=== PATIENT | female | born 1970 | race Caucasian/White ===

== ENCOUNTER 2020-03-18 15:22 | Outpatient (REF) | payer OTHER, SELFPAY ==
[2020-03-18 17:32] LABS: Free T4 (Free Thyroxine) 0.82 ng/dL (0.71-1.85); Thyroid Stimulating Hormone 3.72 uIU/mL (0.32-4.0)
[2020-03-20 13:41] LABS: Thyroid Peroxidase Antibodies 731 IU/mL (<9)
== END 2020-03-18 15:23 | disposition home or self-care (01) ==
LOC: HO.HMGCLDS 15:22
PROVIDERS: PCP Internal Medicine; Visit Provider Internal Medicine
DX: E06.3 Autoimmune thyroiditis (principal); F41.8 Other specified anxiety disorders; N95.1 Menopausal and female climacteric states; E03.9 Hypothyroidism, unspecified
CPT/HCPCS: 36415; 82306; 84439; 84443; 86376

== ENCOUNTER 2020-03-23 12:11 | Outpatient (REF) | payer OTHER, SELFPAY ==
--- NOTE | 2020-03-23 12:15 | MM_ITS ---
EXAMINATION: MM SCREENING DIGITAL MAMMOGRAPHY, BILATERAL CLINICAL INFORMATION: Screening. Asymptomatic. Family history breast cancer, mother age 52. The lifetime risk of breast cancer based on the Tyrer-Cuzick Model is 22%. COMPARISON: Mammography: 03/18/2019, 02/05/2018 TECHNIQUE: Digital mammography is performed in craniocaudal and mediolateral oblique views along with computer-aided detection (CAD). Additional bilateral CC views are provided. FINDINGS: There are scattered areas of fibroglandular density (ACR BI-RADS breast composition Category b). There are no significant masses, abnormal calcifications, or other abnormalities. Parenchymal pattern is similar to prior studies. The axilla and skin contours are unremarkable. No significant changes. MM/MM screening mammo BI IMPRESSION: No mammographic evidence of malignancy. ASSESSMENT: BI-RADS 1: Negative RECOMMENDATION: 1. Routine annual mammography screening. 2. The lifetime risk of breast cancer based on the Tyrer-Cuzick Model is 22%. Additional annual adjunct screening with breast MRI may be of benefit in women with a risk score of 20% or greater. This patient's information was entered into a reminder system with a target due date for their next mammogram.
== END 2020-03-23 12:12 | disposition home or self-care (01) ==
LOC: HO.MAMMO 12:11
PROVIDERS: PCP Internal Medicine; Visit Provider Internal Medicine
DX: Z12.39 Encounter for other screening for malignant neoplasm of breast (principal)
CPT/HCPCS: 77067

== ENCOUNTER 2020-07-22 16:24 | Outpatient (REF) | payer OTHER, SELFPAY ==
[2020-07-24 23:31] LABS: HPV mRNA E6/E7 rflx Not Detected (Not Detected)
== END 2020-07-22 16:25 | disposition home or self-care (01) ==
LOC: HO.LNP 16:24
PROVIDERS: Visit Provider Internal Medicine
DX: Z12.4 Encounter for screening for malignant neoplasm of cervix (principal); Z11.51 Encounter for screening for human papillomavirus (HPV)
CPT/HCPCS: 87624; 88142

== ENCOUNTER 2021-04-06 09:09 | Outpatient (REF) | payer OTHER, SELFPAY ==
--- NOTE | ~2021-04-06 | MM_ITS ---
EXAMINATION: MM SCREENING DIGITAL BREAST TOMOSYNTHESIS, BILATERAL CLINICAL INFORMATION: Screening. Asymptomatic. Family history breast cancer, mother. The lifetime risk of breast cancer based on the Tyrer-Cuzick Model is 22%. COMPARISON: Mammography: 03/23/2020, 03/18/2019, 02/05/2018, 01/09/2017 TECHNIQUE: Digital breast tomosynthesis is performed in both the craniocaudal and mediolateral oblique views along with computer-aided detection (CAD). Synthesized 2D images are generated from the tomosynthesis. Additional right MLO view is provided. FINDINGS: There are scattered areas of fibroglandular density (ACR BI-RADS breast composition Category b). There are no significant masses, abnormal calcifications, or other abnormalities. Parenchymal pattern is similar to prior exams. MM/MM tomosynthesis screening BI IMPRESSION: No mammographic evidence of malignancy. ASSESSMENT: BI-RADS 1: Negative RECOMMENDATION: 1. Routine annual mammography screening. 2. The lifetime risk of breast cancer based on the Tyrer-Cuzick Model is 22%. Additional annual adjunct screening with breast MRI may be of benefit in women with a risk score of 20% or greater. This patient's information was entered into a reminder system with a target due date for their next mammogram.
== END 2021-04-06 09:10 | disposition home or self-care (01) ==
LOC: HO.MAMMO 09:09
PROVIDERS: PCP Internal Medicine; Visit Provider Internal Medicine
DX: Z12.31 Encounter for screening mammogram for malignant neoplasm of breast (principal)
CPT/HCPCS: 77063; 77067

== ENCOUNTER 2022-05-06 13:52 | Outpatient (REF) | payer OTHER, SELFPAY ==
--- NOTE | ~2022-05-06 | MM_ITS ---
EXAMINATION: MM SCREENING DIGITAL BREAST TOMOSYNTHESIS, BILATERAL CLINICAL INFORMATION: Screening. Asymptomatic. Family history breast cancer, mother. The lifetime risk of breast cancer based on the Tyrer-Cuzick Model is 21%. COMPARISON: Mammography: 04/06/2021, 03/23/2020, 03/18/2019 TECHNIQUE: Digital breast tomosynthesis is performed in both the craniocaudal and mediolateral oblique views along with computer-aided detection (CAD). Synthesized 2D images are generated from the tomosynthesis. FINDINGS: There are scattered areas of fibroglandular density (ACR BI-RADS breast composition Category b). There are no significant masses, abnormal calcifications, or other abnormalities. Parenchymal pattern is similar to prior studies. There is no developing density or architectural abnormality. The axilla and skin contours are unremarkable. No significant changes. MM/MM tomosynthesis screening BI IMPRESSION: No mammographic evidence of malignancy. ASSESSMENT: BI-RADS 1: Negative RECOMMENDATION: Routine annual mammography screening. This patient's information was entered into a reminder system with a target due date for their next mammogram.
== END 2022-05-06 13:53 | disposition home or self-care (01) ==
LOC: HO.MAMMO 13:52
PROVIDERS: PCP Internal Medicine; Visit Provider Internal Medicine
DX: Z12.31 Encounter for screening mammogram for malignant neoplasm of breast (principal)
CPT/HCPCS: 77063; 77067

== ENCOUNTER 2023-01-24 10:16 | Outpatient (REF) | payer OTHER, SELFPAY ==
[2023-01-24 13:20] LABS: MANUAL DIFF FLAG NO
[2023-01-24 13:41] LABS: Basophils Absolute Auto 0.1 X10*3/uL (0.0-0.2); Eosinophils Absolute Auto 0.2 X10*3/uL (0.0-0.4); Eosinophils Percent Auto 3.4 % (0-4); Hematocrit 43.6 % (37.0-47.0); Hemoglobin 14.7 g/dl (12.0-16.0); Imm Gran Abs Auto 0.02 X10*3/uL (0.00-0.03); Imm Gran Pct Auto 0.3 % (0.0-0.4); Lymphocytes Absolute Auto 2.3 X10*3/uL (1.2-4.9); Lymphocytes Percent Auto 33.5 % (20-40); Mean Corpuscular HGB Conc 33.7 g/dl (31.0-35.0); Mean Corpuscular Hemoglobin 32.5 pg (27.0-33.0); Mean Corpuscular Volume 96.2 fL (80.0-98.0); Mean Platelet Volume 10.3 fL (9.4-12.3); Monocytes Absolute Auto 0.6 X10*3/uL (0.1-1.2); Monocytes Percent Auto 8.7 % (2-11); Neutrophils Absolute Auto 3.6 x10*3/uL (2.0-8.3); Neutrophils Percent Auto 53.1 % (45-73); Platelet Count 378 X10*3/uL (160-400); Red Blood Count 4.53 X10*6/uL (4.20-5.50); Red Cell Distribution Width 12.2 % (11.0-16.0); White Blood Count 6.8 X10*3/uL (4.8-10.8)
[2023-01-24 13:50] LABS: Alanine Aminotransferase 24 U/L (0-31); Anion Gap 12 (12-20); Aspartate Amino Transferase 18 U/L (5-31); Blood Urea Nitrogen 16 mg/dL (9-16); Calcium 10.1 mg/dL (8.4-10.2); Carbon Dioxide 33 mmol/L (22-29); Chloride 94 mmol/L (96-108); Cholesterol 206 mg/dL (<200); Estimated Glomerular Filt Rate > 60; Glucose Fasting 109 mg/dL (60-99); HDL Cholesterol 64 mg/dL (>40); LDL Cholesterol Calculated 126 mg/dL (<100); Potassium 3.4 mmol/L (3.3-5.1); Sodium 136 mmol/L (135-145); Triglycerides 84 mg/dL (<150)
[2023-01-24 14:13] LABS: Free T4 (Free Thyroxine) 0.82 ng/dL (0.71-1.85); Thyroid Stimulating Hormone 6.39 uIU/mL (0.32-4.0); Vitamin D 25-OH Total 50.8 ng/mL (>30)
== END 2023-01-24 10:17 | disposition home or self-care (01) ==
LOC: HO.HMGCLDS 10:16
PROVIDERS: PCP Internal Medicine; Visit Provider Internal Medicine
DX: E78.5 Hyperlipidemia, unspecified (principal); E06.3 Autoimmune thyroiditis; I10 Essential (primary) hypertension; B00.1 Herpesviral vesicular dermatitis; F41.8 Other specified anxiety disorders; J30.2 Other seasonal allergic rhinitis; N95.1 Menopausal and female climacteric states; E55.9 Vitamin D deficiency, unspecified
CPT/HCPCS: 36415; 80048; 80061; 82306; 84439; 84443; 84450; 84460; 85025

== ENCOUNTER 2023-01-26 11:08 | Outpatient (AMB) | payer OTHER, SELFPAY ==
[2023-01-26 11:10] VITALS: BP 112/80; PULSE 72; O2SAT 98; BMI 35.2
--- NOTE | 2023-01-26 11:10 | MHC.PC.OV ---
Vital Signs 01/26/23 11:10 Height 5 ft 6 in Weight 218 lb BMI 35.2 BP 112/80 Blood Pressure Location Lt brachial Position Sitting Pulse 72 Pulse Source Pulse Oximeter Pulse Oximetry (%) 98 Oxygen Delivery Method Room Air Intake Visit Reasons: Annual PE/Pap Intake Note: patient is here today for annual PE/Pap Allergies No Known Drug Allergies Allergy (Verified 01/26/23 11:41) unknown Environmental Allergy (Unknown, Uncoded 01/26/23 11:41) Unknown Medication List - Last Reconciled 01/26/23 by Sirena Ford MD bupropion HCl 300 mg PO QAM cetirizine 10 mg PO DAILY cholecalciferol (vitamin D3) 125 mcg PO DAILY hydrochlorothiazide 25 mg PO QAM levothyroxine 50 mcg PO DAILY valacyclovir 500 mg PO DAILY Tobacco use date assessed: 01/26/23 Dental Screening Dental Screen Date: 01/26/23 Did you have a dental visit in the last 12 months?: Yes Did you have a dental problem in the last 6 months where you did not have access to dental care?: Yes Was dental information given to patient?: Patient has dentist HPI Annual PE/Pap HPI Details 52-year-old lady With Venancio's thyroiditis with subsequent hypothyroidism, dyslipidemia, hypertension, recurrent cold sores, depression with anxiety,has Vasomotor symptoms secondary to menopause, here today for her physical exam. She has been compliant with healthy eating habits, but admits to not getting any regular exercise this past summer due to the heat. She has been taking her medicines as directed except for her thyroid medicine which he takes at night. Has been feeling more tired than usual and has been getting constipation. She is up-to-date with her screening mammogram done earlier this year with benign findings, overdue for her cervical cancer screening, will be doing a Pap this visit. And she is overdue for colon cancer screening. Patient advised to get her vaccines, but does not want to get a flu shot or the COVID booster or the shingles vaccine [facility] Medical History (Updated 01/26/23 @ 12:11 by Sirena Ford MD) Obesity (BMI 30-39.9) Vaccine refused by patient Acquired hypothyroidism Vitamin D deficiency Numbness and tingling of right lower extremity Spider veins of both lower extremities Breast cancer screening Smoker unmotivated to quit Dyslipidemia Venancio's thyroiditis Essential hypertension IBS (irritable bowel syndrome) Recurrent cold sores Depression with anxiety Seasonal allergies Menopause syndrome Surgical History Trigger thumb, right thumb History of flexible sigmoidoscopy Family History Father Schizophrenia Diabetes mellitus HTN (hypertension) Depression Bladder cancer Liver cancer Mental health disorder Mother Diabetes mellitus HTN (hypertension) Breast cancer Mental health disorder Maternal Grandmother Heart problem Maternal Grandfather Pneumonia Paternal Grandmother No problems noted. Paternal Grandfather No problems noted. Sister Substance use disorder Mental health disorder Sister Mental health disorder Social History Housing: Condominium Alcohol intake: current Patient Tobacco Use Status: Current everyday Tobacco user e-Cigarette/Vaping Use: Never Used service: No Current occupational status: employed Cognitive needs: No Hearing needs: No Vision needs: No Female Reproductive History Menstrual Menopause type: natural Date of last pap smear: 07/23/20 Date of Mammogram: 05/06/22 Questionnaire Thrive Questionnaire Date Thrive assessed: 08/10/22 AUDIT C Alcohol Use Questionnaire (AUDIT-C) 1. How often do you have a drink containing alcohol?: Never Total Score: 0 GABBIE-7 AMB Questionnaire GABBIE-7 Date GABBIE - 7 assessed: 08/10/22 Source: Developed by Drs. Trae Boggs, Emi Soriano, Manuel Salgado and colleagues, with an educational raquel from [employer]. Review of Systems Const Denies body aches, Denies fever(s), Denies headache(s) and Denies weakness Eyes Denies change in vision ENT Denies dizziness, Denies headache(s), Denies nasal congestion, Denies nasal discharge and Denies sore throat Card Denies chest pain, Denies lightheadedness, Denies palpitations and Denies dyspnea Resp Denies chest congestion, Denies cough, Denies dyspnea and Denies wheezing GI Denies abdominal pain, Denies change in bowel habits and Denies heartburn Denies hematuria, Reports change in libido, Denies urinary frequency, Denies difficulty voiding, Denies genital lesions, Reports hot flashes (Recurrent), Denies dysuria, Denies urinary urgency, Denies vaginal discharge and Reports vaginal dryness Musc Denies back pain, Denies myalgias, Denies arthralgias and Denies joint swelling Skin/Breast Denies breast swelling, Denies breast pain, Denies breast mass and Denies rash Neuro Denies dizziness, Denies headache(s) and Denies weakness Psych Reports change in libido Endo Reports change in libido, Denies polydipsia, Denies polyuria and Denies palpitations Charan/Lymph Denies easy bruising Aller/Immun Denies seasonal rhinorrhea and Denies wheezing Physical exam (Primary Care) Vital Signs: Last Vital Signs Pulse 72 01/26/23 11:10 BP 112/80 01/26/23 11:10 Pulse Ox 98 01/26/23 11:10 Oxygen Delivery Method Room Air 01/26/23 11:10 BMI result Body Mass Index 35.2 BMI Assessment/Plan discussion: High BMI High, discussed plan: lifestyle, weight reduction, dietary and physical activity Tobacco/Smoking Status: Tobacco use Status Tobacco use date assessed 01/26/23 01/26/23 11:12 Patient Tobacco Use Status Current everyday Tobacco 01/26/23 11:12 e-Cigarette/Vaping Use Never Used 01/26/23 11:12 Are you ready to quit: No Thrive Assessment: Date of Thrive Assessment Date Thrive assessed 08/10/22 01/26/23 11:12 Const General: comfortable, no acute distress and alert Nutritional Appearance: obese Orientation/consciousness: patient oriented x3 Limitations: no limitations HENMT Other: Alert oriented x3, no acute cardiorespiratory distress ambulatory with normal gait Eyes General: appearance normal, both eyes and all related structures Neck Neck: Yes full ROM, Yes no lymphadenopathy and Yes supple Chest Chest palpation & inspection: normal inspection of the chest Breast/axilla palpation: normal palpation of the breasts Resp Effort & Inspection: normal respiratory effort and able to speak in complete sentences Auscultation: clear to auscultation bilaterally Cardio Rate: regular rate Rhythm: regular rhythm Heart sounds: S1 normal heart sound present and S2 normal heart sound present GI Palpation (GI): Soft to palpation, nontender, no guarding and no masses Auscultation: normal bowel sounds General: Yes no CVA tenderness External Female Exam: normal external appearance and normal appearance of the urethra Speculum Exam - Vagina: normal appearance of the vagina, normal palpation and abnormal vaginal discharge (Scant vaginal discharge) Speculum Exam - Cervix: normal appearance of the cervix, normal palpation, Cervical os open and nontender Bimanual exam- vagina & uterus: normal palpation, normal palpation and No Cervical tenderness present Bimanual Exam- Adnexa, other: normal adnexae, no masses, normal and No adnexal tenderness OB/external & speculum: Cervical os open Back/Spine/Pelvis Back: no CVA tenderness Skin General skin exam: no rashes or lesions noted Neuro General: patient oriented x3, gait normal, moves all extremities, Normal light touch and pain sensation, no focal motor deficits and CN's II-XI intact bilaterally Extrem Other: superficial varicosities seen in both lower extremities, no calf tenderness, no pedal edema Psych Appearance: grossly normal Mental Status: mental status grossly normal Speech and movement: Normal speech and movement present Affect: normal affect Attitude: cooperative Thought process: Normal thought process present Results Reviewed Results Reviewed: RUN: 01/26/23 1215 PAGE 1 [facility] [address] [place] [id number] [employer]: Kyrie Singh M.D. Specimen Inquiry Name: Gladys Cota Age/Sex: 52/F : 1970 Unit#: [id number] Attend Dr: Sirena Ford MD Re01/24/23 Status: DEP REF Location: [facility] Disch: SPEC : [id number] LILI: 01/24/23 STATUS: COMP REQ : [id number] RECD: 01/24/[address]: Sirena Ford MD COMP: 01/24/23 ENTERED: 01/24/[address]: ORDERED: CBC Auto Diff Test Result Flag Reference Site WBC 6.8 4.8-10.8 X10*3/uL RBC 4.53 4.20-5.50 X10*6/uL HGB 14.7 12.0-16.0 g/dl HCT 43.6 37.0-47.0 % MCV 96.2 80.0-98.0 fL MCH 32.5 27.0-33.0 pg MCHC 33.7 31.0-35.0 g/dl RDW 12.2 11.0-16.0 % PLT 378 160-400 X10*3/uL ENTERED: 01/24/23-1020 HR ANGUIANO: ORDERED: Met Prof Fast, AST, ALT, Lipid Panel, Vitamin D 25-OH, Free T4, TSH Test Result Flag Reference Site Sodium 136 135-145 mmol/L Potassium 3.4 3.3-5.1 mmol/L CL 94 L 96-108 mmol/L CO2 33 H 22-29 mmol/L Gap 12 12-20 BUN 16 9-16 mg/dL Creat 0.79 0.5-1.4 mg/dL EGFR > 60 NOTE: For -Citizen Of [place] individuals, multiply the result by 1.210. Chronic Kidney Disease: Estimated GFR < 60 mL/min/1.73m2 Severe Kidney Disease: Estimated GFR < 15 mL/min/1.73m2 FBS 109 H 60-99 mg/dL A fasting glucose from 100-125 mg/dl is considered impaired (pre-diabetes). CA 10.1 8.4-10.2 mg/dL AST (GOT) 18 5-31 U/L ALT (GPT) 24 0-31 U/L Triglyceride 84 <150 mg/dL Desirable Triglyceride: less than 150 mg/dL Borderline High Triglyceride 150-199 mg/dL High Triglyceride: 200-499 mg/dL Very High Triglyceride: greater than or equal to 5OO mg/dL Cholesterol 206 H <200 mg/dL Desirable Cholesterol: less than 200 mg/dL Borderline High Cholesterol: 200-239 mg/dL High Cholesterol: greater than 239 mg/dL LDL Calculated 126 H <100 mg/dL Desirable LDL: less than 100 mg/dL Near Optimal/Above Optimal LDL: 110-129 mg/dL Borderline High LDL: 130-159 mg/dL High LDL: 160-189 mg/dL Very High LDL: greater than or equal to 190 mg/dL HDL 64 >40 mg/dL Desirable HDL: greater than 40 mg/dL Note: This HDL assay may give artificially low results in patients with liver disease. Vit D 25-OH Tot 50.8 >30 ng/mL Health Based Reference Values* < 20 ng/mL Deficient 20-30 ng/mL Insufficient > 30 ng/mL Sufficient *Holick MF. N Engl J Med. 2007;[id number]:266-280 Care must be taken in interpreting Vitamin D results from different laboratories and methodologies. Published data demonstrated that results from patients undergoing hemodialysis may show a negative bias when tested with various automated 25-OH vitamin D assays when compared to LC-MS/MS. When testing samples from patients whose predominant form of Vitamin D is Vitamin D2, such as patients receiving Vitamin D2 supplementation, results that are subtherapeutic should be confirmed with another method such as LC-MS/MS. Free T4 0.82 0.71-1.85 ng/dL TSH 3rd Gen. 6.39 H 0.32-4.0 uIU/mL Note: A sustained TSH level above 2.5 uIU/mL may warrant further investigation. TSH 3rd Generation ([facility]) Assessment and Plan Assessment & Plan (1) Annual visit for general adult medical examination with abnormal findings: Code(s): Z00.01 - Encounter for general adult medical examination with abnormal findings Plan: Discuss recent lab results with patient Recommended dental visit every 6 months and regular eye exams, at least every 2 years. Take adequate calcium in diet and vitamin-D 3 at 2000 IU per cap once a day, in addition to weight-bearing exercises to help maintain good muscle tone and weight control. Instructed to do self-breast exam, and continue to get yearly mammogram, currently up-to-date patient declining all vaccines. Referred to [facility] for initial screening colonoscopy (2) Acquired hypothyroidism: Code(s): E03.9 - Hypothyroidism, unspecified Plan: Discuss recent thyroid results with patient which showed elevated TSH and mildly suppressed free T4. Patient complains of being tired all the time and constipated. Will increase levothyroxine dose to 75 mcg daily, instructed to take it in the morning an hour before breakfast only with glass of water. Will repeat another TSH, free T4 and thyroid peroxidase antibody March 2023 (3) Venancio's thyroiditis: Code(s): E06.3 - Autoimmune thyroiditis (4) Colon cancer screening: Code(s): Z12.11 - Encounter for screening for malignant neoplasm of colon Plan: Referred to GI clinic in [facility] for her initial colonoscopy screening (5) Cervical cancer screening: Code(s): Z12.4 - Encounter for screening for malignant neoplasm of cervix Plan: Pap done (6) Vaccine refused by patient: Code(s): Z28.20 - Immunization not carried out because of patient decision for unspecified reason (7) Obesity (BMI 30-39.9): Code(s): E66.9 - Obesity, unspecified Plan: Discussed need to increase activity. Recommended focusing on improving your health instead of dieting. : Eat Mediterranean diet, limit foods high in fat, sugar, and calories, eat slowly, pay attention to portion sizes, plan your meals ahead of time, start regular physical activity 150 minutes of moderate intensity exercise or 90 minutes/week of vigorous exercise and increase water intake. (8) Smoker unmotivated to quit: Code(s): F17.200 - Nicotine dependence, unspecified, uncomplicated Plan: Patient strongly advised to stop smoking, as smoking damages blood vessels, degenerative of joints and spine, damage to lungs and heart., predisposes to developing certain cancers like lung, breast, bladder, colon. Recommended to try decreasing cigarette use by 1-2 cigarettes a day. Advised to monitor what triggers are for smoking so that this can be discussed on the next office visit. We can discuss different options to quit smoking when ready. (9) Depression with anxiety: Code(s): F41.8 - Other specified anxiety disorders Plan: Stable controlled on bupropion 300 mg 1 tablet in a.m. (10) Recurrent cold sores: Code(s): B00.1 - Herpesviral vesicular dermatitis Plan: Takes Valtrex mg daily for prevention (11) Essential hypertension: Code(s): I10 - Essential (primary) hypertension Plan: Blood pressure at goal of less than 130/80. Continue with hydrochlorothiazide. Reinforced importance of following a low sodium diet, getting regular exercise, and lowering stress levels. Orders: Orders Pap Smear Today Z00.01 - Encounter for general adult medical examination with abnormal findings, Z12.4 - Encounter for screening for malignant neoplasm of cervix Pap Smear Today Z00.01 - Encounter for general adult medical examination with abnormal findings, Z12.4 - Encounter for screening for malignant neoplasm of cervix Thyroid Stimulating Hormone 03/24/23 E03.9 - Hypothyroidism, unspecified, E06.3 - Autoimmune thyroiditis Free T4 (Free Thyroxine) 03/24/23 E03.9 - Hypothyroidism, unspecified, E06.3 - Autoimmune thyroiditis Thyroid Peroxidase Antibodies 03/24/23 E03.9 - Hypothyroidism, unspecified, E06.3 - Autoimmune thyroiditis Referrals Gastroenterology Referral Z00.01 - Encounter for general adult medical examination with abnormal findings, Z12.11 - Encounter for screening for malignant neoplasm of colon Medications: Changed From levothyroxine 50 mcg PO DAILY 90 tabs 1RF To levothyroxine 75 mcg PO DAILY 90 tabs 1RF Review Flu Vaccine not done: patient reason (Patient declined) Coding Level of Care Code Est Pt Prev Care 40-64y(56168) Diagnoses Annual visit for general adult medical examination with abnormal findings Z00.01 Acquired hypothyroidism E03.9 Venancio's thyroiditis E06.3 Colon cancer screening Z12.11 Cervical cancer screening Z12.4 Vaccine refused by patient Z28.20 Obesity (BMI 30-39.9) E66.9 Smoker unmotivated to quit F17.200 Depression with anxiety F41.8 Recurrent cold sores B00.1 Essential hypertension I10
== END 2023-01-26 15:50 | disposition home or self-care (01) ==
PROVIDERS: Visit Provider Internal Medicine
DX: Z00.00 Encounter for general adult medical examination without abnormal findings (principal); E03.9 Hypothyroidism, unspecified; E66.9 Obesity, unspecified; Z68.35 Body mass index [BMI] 35.0-35.9, adult; E06.3 Autoimmune thyroiditis; Z28.20 Immunization not carried out because of patient decision for unspecified reason; F17.210 Nicotine dependence, cigarettes, uncomplicated; F41.8 Other specified anxiety disorders; B00.1 Herpesviral vesicular dermatitis; I10 Essential (primary) hypertension
CPT/HCPCS: 99396

== ENCOUNTER 2023-01-26 12:03 | Outpatient (REF) | payer OTHER, SELFPAY | END 2023-01-26 12:04 | disposition home or self-care (01) | LOC: HO.LAB 12:03 | PROVIDERS: Visit Provider Internal Medicine | DX: Z12.4 Encounter for screening for malignant neoplasm of cervix (principal); Z11.51 Encounter for screening for human papillomavirus (HPV) | CPT/HCPCS: 87624; 88142 ==

== ENCOUNTER 2023-03-22 11:40 | Outpatient (AMB) | payer OTHER, SELFPAY ==
[2023-03-22 11:54] VITALS: BP 150/101; PULSE 79; BMI 35.7
--- NOTE | 2023-03-22 11:54 | A.OFFVIS_ITS ---
Intake Vital Signs 03/22/23 11:54 Height 5 ft 6 in Weight 221 lb 5.506 oz BMI 35.7 BP 150/101 H Blood Pressure Location Lt brachial Position Sitting Pulse 79 Intake Visit Reasons: Colonoscopy Screening Intake Note: Patient presents to in office visit today for colonoscopy screening. CC: Patient c/o constipation, rectal bleeding, and diarrhea. Denies other GI symptoms. Allergies No Known Drug Allergies Allergy (Verified 04/28/23 11:55) unknown Environmental Allergy (Unknown, Uncoded 04/28/23 11:55) Unknown Medication List - Last Reconciled 03/22/23 by ALVIN Crenshaw bupropion HCl 300 mg PO QAM cetirizine 10 mg PO DAILY cholecalciferol (vitamin D3) 125 mcg PO DAILY hydrochlorothiazide 25 mg PO QAM levothyroxine 75 mcg PO DAILY magnesium oxide 500 mg PO BID methylcellulose (with sugar) ea PO sodium,potassium,mag sulfates 17.5-3.13-1.6 gram (Suprep Bowel Prep Kit) 480 mL orally; valacyclovir 500 mg PO DAILY HPI Colonoscopy Screening HPI Details 52-year-old female here for preprocedura l meeting to discuss a screening colonoscopy. She is referred by Sirena Ford of [facility]. PMX Obesity Smoker Hypertension Hypothyroid High cholesterol Numbness and tingling of the right lower extremity Spider veins of the lower extremities IBS Recurrent cold sores Seasonal allergies Depression with anxiety * SURGICAL HISTORY Trigger finger right thumb History of flex sig CTR bilateral * ALLERGIES: NKDA * [facility] LABS:. Laboratory Tests 01/24/23 10:20 WBC 6.8 Hgb 14.7 Hct 43.6 Plt Count 378 Estimated GFR > 60 AST 18 ALT 24 TSH 6.39 H Free T4 0.82 TODAYS VISI She wants a female endoscopist. This is her first colonoscopy. She has had lifelong CIC problems, recently near obpstipation x 2. Has used ex lax, dulcolax. Had stomach upset with metamucil and we discuss citrucel. She iss dong better at drinking water, does not eat well and admits this. She will have episodes of rectal bleeding - this was what her past flex sig was for and she was told she had IH. Also will try rx for magnesium. There are no prior problems with anesthesia or sedation. She denies any cardiac or respiratory problems.. No ID problems. There is no know FHX of crc or polyps. [facility] Medical History Obesity (BMI 30-39.9) Vaccine refused by patient Acquired hypothyroidism Vitamin D deficiency Numbness and tingling of right lower extremity Spider veins of both lower extremities Breast cancer screening Smoker unmotivated to quit Dyslipidemia Venancio's thyroiditis Essential hypertension IBS (irritable bowel syndrome) Recurrent cold sores Depression with anxiety Seasonal allergies Menopause syndrome Surgical History History of carpal tunnel surgery Trigger thumb, right thumb History of flexible sigmoidoscopy Family History Father Schizophrenia Diabetes mellitus HTN (hypertension) Depression Bladder cancer Liver cancer Mental health disorder Mother Diabetes mellitus HTN (hypertension) Breast cancer Mental health disorder Maternal Grandmother Heart problem Maternal Grandfather Pneumonia Paternal Grandmother No problems noted. Paternal Grandfather No problems noted. Sister Substance use disorder Mental health disorder Sister Mental health disorder Social History Housing: Condominium Alcohol intake: current Patient Tobacco Use Status: Current everyday Tobacco user e-Cigarette/Vaping Use: Never Used service: No Current occupational status: employed Cognitive needs: No Hearing needs: No Vision needs: No Review of Systems Const Denies fatigue, Denies fever(s), Denies night sweats, Denies poor appetite and Denies weight loss ENT Reports Normal hearing present, Denies dental pain, Denies dysphagia, Denies hearing loss, Denies mouth pain, Denies odynophagia, Denies throat swelling, Denies tongue swelling and Reports other (Dentition adequate) Card Reports no additional complaints Resp Reports no additional complaints GI Denies abdominal pain, Denies melena, Denies bloating, Denies hematochezia, Reports constipation, Denies GI cramping, Denies dysphagia, Denies excessive flatus, Denies early satiety, Denies heartburn, Denies diarrhea, Denies nausea, Denies odynophagia, Denies vomiting and Denies hematemesis Skin/Breast Denies pruritus, Denies lesions, Denies rash and Denies jaundice Neuro Reports Normal hearing present and Denies Abnormal speech present Endo Denies fatigue Aller/Immun Denies throat swelling and Denies tongue swelling Physical Exam Vital Signs: Last Vital Signs Pulse 79 03/22/23 11:54 BP 150/101 H 03/22/23 11:54 BMI result Body Mass Index 35.7 Const General: cooperative, no acute distress, well developed and well groomed Nutritional Appearance: well nourished and obese Orientation/consciousness: oriented to person, oriented to place and oriented to time Limitations: No language barrier HEENT Head: Yes normocephalic and Yes atraumatic Eyes General: appearance normal, both eyes and all related structures Pupils: Equal, round and reactive pupils present Neck Neck: Yes normal visual inspection and Yes no lymphadenopathy Thyroid: Thyroid normal Resp Effort & Inspection: normal respiratory effort and able to speak in complete sentences Auscultation: clear to auscultation bilaterally Cardio Rate: regular rate Rhythm: regular rhythm Heart sounds: Normal, physiologic split S2 sound present Peripheral pulses: radial pulses present and posterior tibial pulses present GI Inspection: No distended, Yes Abdominal panniculus present and Yes obesity Palpation (GI): Soft to palpation, nontender, no guarding, not rigid and No hepatosplenomegaly present Percussion: Yes normal to percussion Auscultation: normal bowel sounds Rectal Exam - Female: deferred Skin General skin exam: no rashes or lesions noted, turgor normal, skin not dry, no jaundice, No spider nevi and no striae Rashes: no rashes Nails: normal Neuro General: oriented to person, oriented to place and oriented to time Cranial nerves: Yes Equal, round and reactive pupils present and Yes Normal hear ing present Speech: No Abnormal speech present Extrem General: Yes normal to inspection, No clubbing, No cyanosis and No edema Psych Appearance: grossly normal and well kempt Mental Status: mental status grossly normal Speech and movement: Normal speech and movement present Affect: normal affect Attitude: cooperative Thought process: Normal thought process present and not confabulating Thought content: Normal thought content present Insight: Limited insight present (Psych) Judgement: Limited judgement present (Psych) Assessment & Plan Assessment & Plan (1) Pre-op examination: Code(s): Z01.818 - Encounter for other preprocedural examination Plan She wants a female endoscopist. This is her first colonoscopy. She has had lifelong CIC problems, recently near obpstipation x 2. Has used ex lax, dulcolax. Had stomach upset with metamucil and we discuss citrucel. She is dong better at drinking water, does not eat well and admits this. She will have episodes of rectal bleeding - this was what her past flex sig was for and she was told she had IH. Also will try rx for magnesium. There are no prior problems with anesthesia or sedation. She denies any cardiac or respiratory problems.. No ID problems. There is no know FHX of crc or polyps. Orders: Orders Colonoscopy - GI Use Only 03/22/23 Medications: New sodium,potassium,mag sulfates 17.5-3.13-1.6 gram (Suprep Bowel Prep Kit) 480 mL orally; 354 mL 0RF magnesium oxide 500 mg PO BID 60 tabs 6RF K59.04 - Chronic idiopathic constipation, Z01.818 - Encounter for other preprocedural examination Coding Level of Care Code New Pt Level 3 (05153) Diagnoses Pre-op examination Z01.818
== END 2023-03-22 12:37 | disposition home or self-care (01) ==
PROVIDERS: PCP Internal Medicine; Visit Provider Nurse Practitioner
DX: Z01.818 Encounter for other preprocedural examination (principal)
CPT/HCPCS: 99203

== ENCOUNTER → 2023-03-22 11:40 | Outpatient (BNVA) | payer OTHER, SELFPAY | PROVIDERS: PCP Internal Medicine; Visit Provider Nurse Practitioner | DX: Z01.818 Encounter for other preprocedural examination (principal) | CPT/HCPCS: 99202 ==

== ENCOUNTER 2023-04-28 10:14 | Outpatient (AMB) | payer OTHER, SELFPAY ==
--- NOTE | 2023-04-28 11:55 | MHC.OFFWIV ---
Intake Vital Signs 04/28/23 11:57 Height 5 ft 6 in Weight 210 lb BMI 33.9 BP 124/80 Blood Pressure Location Lt brachial Position Sitting Pulse 86 Pulse Source Pulse Oximeter Temp 97.4 F Temp Source Temporal Artery Scan Pulse Oximetry (%) 97 Oxygen Delivery Method Room Air Intake Visit Reasons: EP SOB, H/A, dry Cough/ OK [id number] Intake Note: Pt is here c/o SOB, dry cough for three days. Pt states she is having trouble breathing. Patient Tobacco Use Status: Current everyday Tobacco user Allergies No Known Drug Allergies Allergy (Verified 04/28/23 11:55) unknown Environmental Allergy (Unknown, Uncoded 04/28/23 11:55) Unknown Do you need a note to return to daycare/school/sports/work: Yes HPI HPI Comments History of Present Illness Details Patient presents for cough She is a smoker but denies inhaler use She said her sister has PNA and she was around her for 10 minutes She said cough since Monday No phlegm, fever or chills Minimal congestion and she denies ST or ear pain + lost voice and irritation Mucinex without relief Said chest feels tight and mucus is sitting in lungs PFS Medical History Obesity (BMI 30-39.9) Vaccine refused by patient Acquired hypothyroidism Vitamin D deficiency Numbness and tingling of right lower extremity Spider veins of both lower extremities Breast cancer screening Smoker unmotivated to quit Dyslipidemia Venancio's thyroiditis Essential hypertension IBS (irritable bowel syndrome) Recurrent cold sores Depression with anxiety Seasonal allergies Menopause syndrome Surgical History History of carpal tunnel surgery Trigger thumb, right thumb History of flexible sigmoidoscopy Family History Father Schizophrenia Diabetes mellitus HTN (hypertension) Depression Bladder cancer Liver cancer Mental health disorder Mother Diabetes mellitus HTN (hypertension) Breast cancer Mental health disorder Maternal Grandmother Heart problem Maternal Grandfather Pneumonia Paternal Grandmother No problems noted. Paternal Grandfather No problems noted. Sister Substance use disorder Mental health disorder Sister Mental health disorder Social History (Reviewed 03/22/23 @ 11:58 by [facility] Benavidez [facility]: Condominium Alcohol intake: current Patient Tobacco Use Status: Current everyday Tobacco user e-Cigarette/Vaping Use: Never Used service: No Current occupational status: employed Cognitive needs: No Hearing needs: No Vision needs: No Review of Systems Const Denies body aches, Denies chills, Denies fatigue, Denies fever(s) and Denies headache(s) Eyes Denies blurry vision ENT Denies otalgia, Denies headache(s), Reports nasal congestion, Denies nasal discharge, Denies sore throat and Denies throat swelling Card Denies chest pain Resp Reports chest congestion, Reports cough, Denies hemoptysis, Denies pain on inspiration, Denies pain with cough and Denies wheezing Musc Denies myalgias Neuro Denies headache(s) Endo Denies fatigue Aller/Immun Denies throat swelling and Denies wheezing Physical Exam Vital Signs: Last Vital Signs Temp 97.4 F 04/28/23 11:57 Pulse 6 L 04/28/23 11:57 BP 124/80 04/28/23 11:57 Pulse Ox 97 04/28/23 11:57 Oxygen Delivery Method Room Air 04/28/23 11:57 BMI result Body Mass Index 33.9 General: Non-toxic, NAD. Speaking full sentences. Skin: Warm dry throughout Eye: EOMI HENT: Airway patent. Uvula midline. No pharyngeal erythema or edema. No ON AIR TALENT. Hoarse voice but no submental or sublingual edema. No lymphadenopathy Bilateral canals clear. TM non-erythematous, non-bulging. No TM perforation or hemotympanum noted. Respiratory: CTA bilaterally. No wheezes, rales or rhonchi Cardiac: RRR. No murmur MSK: Full ROM extremities. Neurology: A/O. No aphasia or facial droop. Gait without abnormality Psych: Good mood and affect Assessment & Plan Assessment & Plan (1) Upper respiratory infection: Code(s): J06.9 - Acute upper respiratory infection, unspecified Qualifiers: URI type: unspecified viral URI Qualified Code(s): J06.9 - Acute upper respiratory infection, unspecified Plan Patient seen and evaluated. Lungs CTAAirway patent She refused COVID test Prednisone with food ((avoid nsaids and alcohol). Don't take too late. Has had in past and tolerated Tessalon F/U with PCP Patient gave verbal understanding and had no additional questions or concerns at time of discharge All questions answered Medications: New prednisone 40 mg (2 x 20 mg) PO DAILY 8 tabs 0RF benzonatate 100 mg PO BID-TID PRN 14 caps 0RF cough Coding Level of Care Code Est Pt Level 3 (82080) Diagnoses Viral upper respiratory tract infection J06.9 URI type: unspecified viral URI
[2023-04-28 11:57] VITALS: BP 124/80; PULSE 86; TEMP 36.3; O2SAT 97; BMI 33.9
== END 2023-04-28 13:13 | disposition home or self-care (01) ==
PROVIDERS: PCP Internal Medicine; Visit Provider Physician Assistant
DX: J06.9 Acute upper respiratory infection, unspecified (principal)
CPT/HCPCS: 99213

== ENCOUNTER 2023-05-10 09:03 | Outpatient (REF) | payer OTHER, SELFPAY ==
[2023-05-10 12:13] LABS: Thyroid Stimulating Hormone 4.27 uIU/mL (0.32-4.0)
[2023-05-11 11:29] LABS: Thyroid Peroxidase Antibodies 579 IU/mL (<9)
== END 2023-05-10 09:04 | disposition home or self-care (01) ==
LOC: HO.HMGCLDS 09:03
PROVIDERS: PCP Internal Medicine; Visit Provider Internal Medicine
DX: E03.9 Hypothyroidism, unspecified (principal); E06.3 Autoimmune thyroiditis
CPT/HCPCS: 36415; 84439; 84443; 86376

== ENCOUNTER 2023-05-12 14:24 | Outpatient (REF) | payer OTHER, SELFPAY | END 2023-05-12 14:25 | disposition home or self-care (01) | LOC: HO.MAMMO 14:24 | PROVIDERS: PCP Internal Medicine; Visit Provider Internal Medicine | DX: Z12.31 Encounter for screening mammogram for malignant neoplasm of breast (principal) | CPT/HCPCS: 77063; 77067 ==

== ENCOUNTER → 2023-05-12 14:30 | Outpatient (BNV) | payer OTHER, SELFPAY | PROVIDERS: PCP Internal Medicine; Visit Provider Radiology Diagnostic Radiology | DX: Z12.31 Encounter for screening mammogram for malignant neoplasm of breast (principal) | CPT/HCPCS: 77063; 77067 ==

== ENCOUNTER 2023-11-02 14:54 | Outpatient (AMB) | payer OTHER, SELFPAY ==
[2023-11-02 14:55] VITALS: BP 140/80; PULSE 75; TEMP 36.8; O2SAT 98
--- NOTE | 2023-11-02 14:55 | MHC.OFFWIV ---
Intake Vital Signs 11/02/23 14:55 Height 5 ft 6 in BMI Reason not done Patient refused/unable BP 140/80 H Blood Pressure Location Rt brachial Position Sitting Pulse 75 Pulse Source Pulse Oximeter Temp 98.2 F Temp Source Oral Pulse Oximetry (%) 98 Intake Visit Reasons: EP rash Intake Note: pt is here for rash on foot, suspects its athletes feet from pedicure at home Patient Tobacco Use Status: Current everyday Tobacco user Allergies No Known Drug Allergies Allergy (Verified 11/02/23 14:56) unknown Environmental Allergy (Unknown, Uncoded 04/28/23 11:55) Unknown Medication List - Last Reconciled 11/02/23 by Kavitha La NP bupropion HCl XL 300 mg PO QAM cetirizine 10 mg PO DAILY cholecalciferol (vitamin D3) 125 mcg PO DAILY hydrochlorothiazide 25 mg PO QAM levothyroxine 75 mcg PO DAILY magnesium oxide 500 mg PO BID valacyclovir 500 mg PO DAILY Do you need a note to return to daycare/school/sports/work: No HPI EP rash HPI Details This note is constructed using voice recognition software. While every effort has been made to ensure accuracy, store receiving clerk errors may have been included. 53-year-old female patient presents 3 day history rash to the top of the toes on bilateral feet. She notes that she had given herself on at-home pedicure, and had trimmed the cuticles, and then got acetone on that area. She then soaked her feet in a goat's milk soak. The area is itchy, not warm, no discharge. She was concerned that she may have athlete's feet, though she does not have any issue in between the toes or at the bottom of the foot. She also notes that she had a blister to her left great toe, which she popped and drained clear drainage. She was applying antibiotic ointment to the area, and then she was applying hydrocortisone [id number] to the toes which seemed to help the itch. [facility] Medical History Obesity (BMI 30-39.9) Vaccine refused by patient Acquired hypothyroidism Vitamin D deficiency Numbness and tingling of right lower extremity Spider veins of both lower extremities Breast cancer screening Smoker unmotivated to quit Dyslipidemia Venancio's thyroiditis Essential hypertension IBS (irritable bowel syndrome) Recurrent cold sores Depression with anxiety Seasonal allergies Menopause syndrome Surgical History History of carpal tunnel surgery Trigger thumb, right thumb History of flexible sigmoidoscopy Family History Father Schizophrenia Diabetes mellitus HTN (hypertension) Depression Bladder cancer Liver cancer Mental health disorder Mother Diabetes mellitus HTN (hypertension) Breast cancer Mental health disorder Maternal Grandmother Heart problem Maternal Grandfather Pneumonia Paternal Grandmother No problems noted. Paternal Grandfather No problems noted. Sister Substance use disorder Mental health disorder Sister Mental health disorder Social History Housing: Condominium Alcohol intake: current Patient Tobacco Use Status: Current everyday Tobacco user e-Cigarette/Vaping Use: Never Used service: No Current occupational status: employed Cognitive needs: No Hearing needs: No Vision needs: No Review of Systems Const All systems reviewed & are unremarkable except as noted in HPI and below Physical Exam Vital Signs: Last Vital Signs Temp 98.2 F 11/02/23 14:55 Pulse 75 11/02/23 14:55 BP 140/80 H 11/02/23 14:55 Pulse Ox 98 11/02/23 14:55 Const General: cooperative, healthy appearing, comfortable, no acute distress and alert Orientation/consciousness: patient oriented x3 Limitations: no limitations Skin Other: Mild erythema to the skin around the base of the toenails on bilateral feet. No serpiginous edges, discharge, or additional lesions to this area. Additionally open blister present to the left great toe, no discharge. No warmth. General skin exam: elasticity normal and turgor normal Neuro General: patient oriented x3 Extrem General: Yes normal to inspection, Yes full ROM, Yes capillary refill normal and Yes normal exam except as noted Psych Appearance: grossly normal Mental Status: mental status grossly normal Speech and movement: Normal speech and movement present Affect: normal affect Assessment & Plan Assessment & Plan (1) Dermatitis: Code(s): L30.9 - Dermatitis, unspecified Plan: Does not appear to be fungal in nature. Advised continuing use of hydrocortisone as this has been helpful. We will prescribe hydroxyzine p.r.n. to help with itch. Advised follow up with worsening or failure to resolve. Plan See above for full details and plan. Medications: New hydroxyzine HCl 10 mg PO TID 5 days PRN 15 tabs 0RF itching Coding Level of Care Code Est Pt Level 3 (27007) Diagnoses Dermatitis L30.9
== END 2023-11-02 15:29 | disposition home or self-care (01) ==
PROVIDERS: PCP Internal Medicine; Visit Provider Registered Nurse
DX: L30.9 Dermatitis, unspecified (principal)
CPT/HCPCS: 99213

== ENCOUNTER → 2024-05-17 14:00 | Outpatient (BNV) | payer OTHER, SELFPAY | PROVIDERS: PCP Internal Medicine; Visit Provider Internal Medicine | DX: Z12.31 Encounter for screening mammogram for malignant neoplasm of breast (principal) | CPT/HCPCS: 77063; 77067 ==

== ENCOUNTER 2024-05-17 14:10 | Outpatient (REF) | payer OTHER, SELFPAY | END 2024-05-17 14:11 | disposition home or self-care (01) | LOC: HO.MAMMO 14:10 | PROVIDERS: PCP Internal Medicine; Visit Provider Internal Medicine | DX: Z12.31 Encounter for screening mammogram for malignant neoplasm of breast (principal) | CPT/HCPCS: 77063; 77067 ==

== ENCOUNTER 2024-06-20 14:28 | Outpatient (AMB) | payer OTHER, SELFPAY ==
[2024-06-20 14:53] VITALS: BP 116/80; PULSE 72; O2SAT 98; BMI 35.8
--- NOTE | 2024-06-20 14:53 | MHC.OFFWIV ---
Intake Vital Signs 06/20/24 14:53 Height 5 ft 6 in Weight 222 lb BMI 35.8 BP 116/80 Blood Pressure Location Lt brachial Position Sitting Pulse 72 Pulse Source Pulse Oximeter Pulse Oximetry (%) 98 Oxygen Delivery Method Room Air Intake Visit Reasons: EP NErve pain in LT leg Intake Note: Patient here for left leg pain that has been present for over 1 week now. Patient Tobacco Use Status: Current everyday Tobacco user Allergies No Known Drug Allergies Allergy (Verified 06/20/24 14:57) unknown Environmental Allergy (Unknown, Uncoded 06/20/24 14:57) Unknown Do you need a note to return to daycare/school/sports/work: No HPI HPI Comments History of Present Illness Details History of Present Illness - The patient is a 53-year-old female presenting with suspected sciatica. - The acute pain began last week, worsened over the weekend, and currently limits walking. - The patient describes the pain as sharp and shooting, localized in the left leg up to the knee. - There is a history of resolved back problems that had not resurfaced until now. - The patient reports weakness and balance issues in the left leg. - Pain in varicose veins noted, with concerns about warmth and potential thrombosis, given family history. - Treatments such as oxycodone and arthritis medications have provided limited relief. - The patient maintains an active lifestyle but is aware of her overweight status. Physical Exam General: Cooperative, healthy appearing, comfortable, no acute distress and well developed Orientation: Patient oriented x3 Limitations: Weakness in the leg, difficulty lifting it, and almost lost balance Head: Normal to inspection Ears: Hearing grossly normal bilaterally Nose: Normal external nose present Face and sinus: Normal facial exam Eyes: Appearance normal, both eyes and all related structures Neck: Normal visual inspection and Yes full ROM Respiratory: Normal respiratory effort and able to speak in complete sentences. Clear to auscultation bilaterally Cardiovascular: Regular rate and rhythm. Normal S1 and S2 Skin: No rashes or lesions noted Neuro: Patient oriented x3 Extremities: Painful varicose veins noted, weakness in the leg, difficulty lifting it, and almost lost balance [facility] Medical History Obesity (BMI 30-39.9) Vaccine refused by patient Acquired hypothyroidism Vitamin D deficiency Numbness and tingling of right lower extremity Spider veins of both lower extremities Breast cancer screening Smoker unmotivated to quit Dyslipidemia Venancio's thyroiditis Essential hypertension IBS (irritable bowel syndrome) Recurrent cold sores Depression with anxiety Seasonal allergies Menopause syndrome Surgical History History of carpal tunnel surgery Trigger thumb, right thumb History of flexible sigmoidoscopy Family History Father Schizophrenia Diabetes mellitus HTN (hypertension) Depression Bladder cancer Liver cancer Mental health disorder Mother Diabetes mellitus HTN (hypertension) Breast cancer Mental health disorder Maternal Grandmother Heart problem Maternal Grandfather Pneumonia Paternal Grandmother No problems noted. Paternal Grandfather No problems noted. Sister Substance use disorder Mental health disorder Sister Mental health disorder [facility] Alcohol intake: current Patient Tobacco Use Status: Current everyday Tobacco user e-Cigarette/Vaping Use: Never Used service: No Current occupational status: employed Cognitive needs: No Hearing needs: No Vision needs: No Review of Systems Const All systems reviewed & are unremarkable except as noted in HPI and below Physical Exam Vital Signs: Last Vital Signs Pulse 72 06/20/24 14:53 BP 116/80 06/20/24 14:53 Pulse Ox 98 06/20/24 14:53 Oxygen Delivery Method Room Air 06/20/24 14:53 BMI result Body Mass Index 35.8 Assessment & Plan Assessment & Plan (1) Left leg pain: Code(s): M79.605 - Pain in left leg Plan: As pt is very concerned about a DVT and is having pain in the left leg, she is a smoker and she does have a little bit of swelling in the left leg as well as a strong family history for blood clots, I will order an ultrasound to rule out a clot. US was negative for DVT. The primary focus is on managing sciatica with a methylprednisolone dose pack to alleviate inflammation responsible for the nerve pain. Initiating treatment the next day was advised to avoid potential insomnia from steroid dosing. Also recommending following up with a vein specialist for persistent symptoms. Patient was informed and verbally consented to the use of an ambient scribe for clinic note documentation during this visit. Orders: Orders US venous duplex LE LT Today M79.605 - Pain in left leg Medications: New methylprednisolone PO PER PKG DIR for 6 days 21 ea 0RF Coding Level of Care Code Est Pt Level 5 (35873) Diagnoses Left leg pain M79.605
== END 2024-06-20 15:29 | disposition home or self-care (01) ==
PROVIDERS: PCP Internal Medicine; Visit Provider Physician Assistant
DX: M79.605 Pain in left leg (principal)

== ENCOUNTER 2024-06-20 15:32 | Outpatient (REF) | payer OTHER, SELFPAY ==
--- NOTE | ~2024-06-20 | US_ITS ---
EXAMINATION: US TRIPLEX LOWER EXTREMITY, LEFT CLINICAL INFORMATION: Left leg pain. COMPARISON: None available. TECHNIQUE: Color-flow triplex imaging with spectral analysis and compression Doppler were performed on the left lower extremity. FINDINGS: Respiratory variation, normal compression and augmented flow are noted throughout the left lower extremity. The visualized common femoral vein, superficial femoral vein, profunda femoral vein, popliteal vein and midcalf peroneal and posterior tibial venous segments show no evidence of deep venous thrombosis. There is no Duvall's cyst. US/US venous duplex LE LT IMPRESSION: No evidence of deep venous thrombosis involving the left lower extremity. Electronically signed by: Lg Kumar MD 06/20/2024 04:26 PM BRENNA
== END 2024-06-20 15:33 | disposition home or self-care (01) ==
LOC: HO.HMGCX 15:32
PROVIDERS: PCP Internal Medicine; Visit Provider Physician Assistant
DX: M79.605 Pain in left leg (principal)
CPT/HCPCS: 93971

== ENCOUNTER → 2024-06-20 15:43 | Outpatient (BNV) | payer OTHER, SELFPAY | PROVIDERS: PCP Internal Medicine; Visit Provider Radiology Diagnostic Radiology | DX: M79.605 Pain in left leg (principal) | CPT/HCPCS: 93971 ==

== ENCOUNTER 2024-06-24 12:10 | Outpatient (AMB) | payer OTHER, SELFPAY ==
--- NOTE | 2024-06-24 12:46 | AM.OFFWIN_ITS ---
Intake Vital Signs 06/24/24 12:49 Weight 222 lb BP 140/90 H Blood Pressure Location Rt brachial Position Sitting Pulse 60 Pulse Source Pulse Oximeter Pulse Oximetry (%) 98 Oxygen Delivery Method Room Air Intake Visit Reasons: EP pain on LT knee, leg & back Intake Note: Patient here for left knee pain, leg and back pain and was given steroids which did not help. Patient Tobacco Use Status: Current everyday Tobacco user Allergies No Known Drug Allergies Allergy (Verified 06/20/24 14:57) unknown Environmental Allergy (Unknown, Uncoded 06/20/24 14:57) Unknown HPI HPI Comments History of Present Illness Details 53 y/o female patient who presents to [facility] with c/o left lower extremity pain. She was seen here 06/20 for similar concern and given Medro dose pack - reports no symptom relief. Pt asking for Gabapentin - she used it in the past with good symptom relief. COUNTS INCLUDE 234 BEDS AT THE [facility] Medical History Obesity (BMI 30-39.9) Vaccine refused by patient Acquired hypothyroidism Vitamin D deficiency Numbness and tingling of right lower extremity Spider veins of both lower extremities Breast cancer screening Smoker unmotivated to quit Dyslipidemia Venancio's thyroiditis Essential hypertension IBS (irritable bowel syndrome) Recurrent cold sores Depression with anxiety Seasonal allergies Menopause syndrome Surgical History History of carpal tunnel surgery Trigger thumb, right thumb History of flexible sigmoidoscopy Family History Father Schizophrenia Diabetes mellitus HTN (hypertension) Depression Bladder cancer Liver cancer Mental health disorder Mother Diabetes mellitus HTN (hypertension) Breast cancer Mental health disorder Maternal Grandmother Heart problem Maternal Grandfather Pneumonia Paternal Grandmother No problems noted. Paternal Grandfather No problems noted. Sister Substance use disorder Mental health disorder Sister Mental health disorder Social History Housing: Condominium Alcohol intake: current Patient Tobacco Use Status: Current everyday Tobacco user e-Cigarette/Vaping Use: Never Used service: No Current occupational status: employed Cognitive needs: No Hearing needs: No Vision needs: No Review of Systems Const All systems reviewed & are unremarkable except as noted in HPI and below Physical Exam Vital Signs: Last Vital Signs Pulse 60 06/24/24 12:49 BP 140/90 H 06/24/24 12:49 Pulse Ox 98 06/24/24 12:49 Oxygen Delivery Method Room Air 06/24/24 12:49 Const General: cooperative and no acute distress Nutritional Appearance: overweight Orientation/consciousness: patient oriented x3 Neuro General: patient oriented x3, gait normal and moves all extremities Extrem Other: Painful varicose veins noted, weakness in the left leg, difficulty lifting it. Left lower extremity: lower leg (Painful varicose veins noted, weakness in the leg, difficulty lifting it) Details: no edema; no lacerations, no crepitus and no deformity Psych Speech and movement: Normal speech and movement present Assessment & Plan Assessment & Plan (1) Left leg pain: Code(s): M79.605 - Pain in left leg Plan: Prescribed Gabapentin 100 TID for 14 days. Advised to f/u with PCP. Medications: New gabapentin 100 mg PO TID 14 days 42 caps 0RF M79.605 - Pain in left leg Coding Level of Care Code Est Pt Level 4 (18252) Diagnoses Left leg pain M79.605 Time Spent (min) 20
[2024-06-24 12:49] VITALS: BP 140/90; PULSE 60; O2SAT 98
== END 2024-06-24 13:20 | disposition home or self-care (01) ==
PROVIDERS: PCP Internal Medicine; Visit Provider Nurse Practitioner Family
DX: M79.605 Pain in left leg (principal)

== ENCOUNTER → 2024-06-24 12:10 | Outpatient (BNVA) | payer OTHER, SELFPAY | PROVIDERS: PCP Internal Medicine | DX: M79.605 Pain in left leg (principal) | CPT/HCPCS: 99212 ==

== ENCOUNTER 2024-07-02 13:23 | Outpatient (AMB) | payer OTHER, SELFPAY ==
[2024-07-02 13:32] VITALS: BP 156/100; PULSE 69; RESP 16; TEMP 36.7; O2SAT 95; BMI 35.5
--- NOTE | 2024-07-02 13:32 | MHC.PC.OV ---
Vital Signs 07/02/24 13:32 Height 5 ft 6 in Weight 220 lb BMI 35.5 BP 156/100 H Blood Pressure Location Lt brachial Position Sitting Respiration 16 Pulse 69 Pulse Source Pulse Oximeter Temp 98.1 F Temp Source Oral Pulse Oximetry (%) 95 Oxygen Delivery Method Room Air Intake Visit Reasons: abd discomfort/request GI referral Intake Note: Pt is here today c/o abdominal discomfort Allergies No Known Drug Allergies Allergy (Verified 07/02/24 13:42) unknown Environmental Allergy (Unknown, Uncoded 07/02/24 13:42) Unknown Medication List - Last Reconciled 07/02/24 by Sirena Ford MD bupropion HCl XL 300 mg PO QAM cetirizine 10 mg PO DAILY cholecalciferol (vitamin D3) 125 mcg PO DAILY gabapentin 100 mg PO TID 14 days hydrochlorothiazide 25 mg PO QAM levothyroxine 75 mcg PO DAILY magnesium oxide 500 mg PO BID valacyclovir 500 mg PO DAILY Tobacco use date assessed: 01/26/23 Dental Screening Dental Screen Date: 01/26/23 HPI abd discomfort/request GI referral HPI Details 53-year-old lady with history of Venancio's thyroiditis with hypothyroidism, dyslipidemia, history of depression and anxiety, here today complaining of having difficulty moving her bowels for the last several months now. She has tried most everything [id number] to help her with her constipation namely milk of magnesia, MiraLax, Colace, Senokot, all of which has not helped. She complains of feeling bloated all the time, and has been having sharp pains in her abdomen. She was supposed to get a colonoscopy screening done last year but patient canceled the procedure due to some conflicts with her schedule. Requesting to be referred to Dr. Carr at [facility] for GI consult COUNT INCLUDES THE [facility] Medical History (Updated 07/02/24 @ 13:58 by Sirena Ford MD) Colon cancer screening Obesity (BMI 30-39.9) Vaccine refused by patient Acquired hypothyroidism Vitamin D deficiency Numbness and tingling of right lower extremity Spider veins of both lower extremities Breast cancer screening Smoker unmotivated to quit Dyslipidemia Venancio's thyroiditis Essential hypertension IBS (irritable bowel syndrome) Recurrent cold sores Depression with anxiety Seasonal allergies Menopause syndrome Surgical History History of carpal tunnel surgery Trigger thumb, right thumb History of flexible sigmoidoscopy Family History Father Schizophrenia Diabetes mellitus HTN (hypertension) Depression Bladder cancer Liver cancer Mental health disorder Mother Diabetes mellitus HTN (hypertension) Breast cancer Mental health disorder Maternal Grandmother Heart problem Maternal Grandfather Pneumonia Paternal Grandmother No problems noted. Paternal Grandfather No problems noted. Sister Substance use disorder Mental health disorder Sister Mental health disorder Social History Housing: Condominium Alcohol intake: current Patient Tobacco Use Status: Current everyday Tobacco user e-Cigarette/Vaping Use: Never Used service: No Current occupational status: employed Cognitive needs: No Hearing needs: No Vision needs: No Questionnaire PHQ-9 Over the last 2 weeks, how often have you been bothered by any of the following problems? 1. Little interest or pleasure in doing things: nearly every day 2. Feeling down, depressed, or hopeless: several days 3. Trouble falling or staying asleep, or sleeping too much: more than half the days 4. Feeling tired or having little energy: several days 5. Poor appetite or overeating: several days 6. Feeling bad about yourself - or that you are a failure or have let yourself or your family down: several days 7. Trouble concentrating on things, such as reading the newspaper or watching television: several days 8. Moving or speaking so slowly that other people could have noticed. Or the opposite - being so fidgety or restless that you have been moving around a lot more than usual: several days 9. Thoughts that you would be better off or of hurting yourself in some way: several days Total score: 12 Source: Developed by Drs. Trae Boggs, Emi Soriano, Manuel Salgado and colleagues, with an educational raquel from [employer]. Thrive Questionnaire Date Thrive assessed: 08/10/22 I am a: Patient What is your living situation today?: I have a place to live, but I am worried about losing it in the future Within the past 12 months, did the food you bought not last and you didn't have the money to get more?: Often true Within the past 12 months, did you worry whether your food would run out before you got money to buy more?: Often true Do you have trouble paying for medicines?: No Do you have trouble getting transportation to medical appointments?: No Do you have trouble paying your heating and electricity bill?: Yes Do you have trouble taking care of your child, family member or friend?: No Do you have trouble with day-to-day activities such as bathing, preparing meals, shopping, managing finances, etc.?: No Are you currently unemployed and looking for a job?: No Are you interested in more education?: No Please select the resources that you would like help with: Job search/training Currently or been in a relationship where the following occur: I choose not to answer THRIVE Score: 4 AUDIT C Alcohol Use Questionnaire (AUDIT-C) 1. How often do you have a drink containing alcohol?: Never Total Score: 0 GABBIE-7 AMB Questionnaire GABBIE-7 Date GABBIE - 7 assessed: 08/10/22 Feeling nervous, anxious, or on edge: 1 = Several days Not being able to stop or control worryin = Several days Worrying too much about different things: 1 = Several days Trouble relaxin = Several days Being so restless that it is hard to sit still: 1 = Several days Becoming easily annoyed or irritable: 1 = Several days Feeling afraid as if something awful might happen: 1 = Several days Total GABBIE-7 score (0-4 normal; 5-9 mild; 10-14 moderate; 15-21 severe): 7 Source: Developed by Drs. Trae Boggs, Emi Soriano, Manuel Salgado and colleagues, with an educational raquel from [employer]. Review of Systems Const All systems reviewed & are unremarkable except as noted in HPI and below Physical exam (Primary Care) Vital Signs: Last Vital Signs Temp 98.1 F 07/02/24 13:32 Pulse 69 07/02/24 13:32 Resp 16 07/02/24 13:32 BP 156/100 H 07/02/24 13:32 Pulse Ox 95 07/02/24 13:32 Oxygen Delivery Method Room Air 07/02/24 13:32 BMI result Body Mass Index 35.5 BMI Assessment/Plan discussion: High BMI High, discussed plan: lifestyle, weight reduction, dietary and physical activity Tobacco/Smoking Status: Tobacco use Status Tobacco use date assessed 01/26/23 07/02/24 13:39 Patient Tobacco Use Status Current everyday Tobacco 07/02/24 13:39 e-Cigarette/Vaping Use Never Used 07/02/24 13:39 Are you ready to quit: No PHQ-9: PHQ-9 Score PHQ-9: Total score 12 07/02/24 13:46 Thrive Assessment: Date of Thrive Assessment Date Thrive assessed 08/10/22 07/02/24 13:39 Currently or been in a relationship where the following occur: I choose not to answer Const General: comfortable, no acute distress and alert Nutritional Appearance: obese Orientation/consciousness: patient oriented x3 HENMT Other: Alert oriented x3, no acute cardiorespiratory distress ambulatory with normal gait Eyes General: appearance normal, both eyes and all related structures Neck Neck: Yes full ROM, Yes no lymphadenopathy and Yes supple Resp Effort & Inspection: normal respiratory effort and able to speak in complete sentences Auscultation: clear to auscultation bilaterally Cardio Rate: regular rate Rhythm: regular rhythm Heart sounds: S1 normal heart sound present and S2 normal heart sound present GI Palpation (GI): Soft to palpation, nontender and no guarding Skin General skin exam: no rashes or lesions noted Neuro General: patient oriented x3, gait normal, moves all extremities, Normal light touch and pain sensation, no focal motor deficits and CN's II-XI intact bilaterally Extrem Other: superficial varicosities seen in both lower extremities, no calf tenderness, no pedal edema Coding Level of Care Code Est Pt Level 4 (53846) Complex EM visit Add On G2211 Diagnoses Acquired hypothyroidism E03.9 Essential hypertension I10 Chronic idiopathic constipation K59.04 Encounter for screening for malignant neoplasm of colon Z12.11 Assessment & Plan Assessment & Plan (1) Acquired hypothyroidism: Code(s): E03.9 - Hypothyroidism, unspecified Category: Medical Plan: TSH and free T4 ordered. Patient currently on levothyroxine 75 mcg daily (2) Essential hypertension: Code(s): I10 - Essential (primary) hypertension Category: Medical Plan: Blood pressure elevated on this visit, likely brought about by her having frequent episodes of constipation. will continue hydrochlorothiazide 25 mg daily in the morning. Will continue to monitor blood pressure. Patient strongly advised to stop smoking (3) Chronic idiopathic constipation: Code(s): K59.04 - Chronic idiopathic constipation Category: Medical Plan: Trial of Linzess 145 mcg to be taken once a day in a.m. prescribed. (4) Encounter for screening for malignant neoplasm of colon: Code(s): Z12.11 - Encounter for screening for malignant neoplasm of colon Category: Medical Plan: Referred to Dr. Lockhart at [facility] for her colon cancer screening. Orders: Orders Alanine Aminotransferase 07/02/24 E03.9 - Hypothyroidism, unspecified, F17.200 - Nicotine dependence, unspecified, uncomplicated, I10 - Essential (primary) hypertension, K59.04 - Chronic idiopathic constipation, N95.1 - Menopausal and female climacteric states Aspartate Amino Transferase 07/02/24 E03.9 - Hypothyroidism, unspecified, F17.200 - Nicotine dependence, unspecified, uncomplicated, I10 - Essential (primary) hypertension, K59.04 - Chronic idiopathic constipation, N95.1 - Menopausal and female climacteric states Basic Metabolic Panel Fasting 07/02/24 E03.9 - Hypothyroidism, unspecified, F17.200 - Nicotine dependence, unspecified, uncomplicated, I10 - Essential (primary) hypertension, K59.04 - Chronic idiopathic constipation, N95.1 - Menopausal and female climacteric states Thyroid Stimulating Hormone 07/02/24 E03.9 - Hypothyroidism, unspecified, F17.200 - Nicotine dependence, unspecified, uncomplicated, I10 - Essential (primary) hypertension, K59.04 - Chronic idiopathic constipation, N95.1 - Menopausal and female climacteric states Free T4 (Free Thyroxine) 07/02/24 E03.9 - Hypothyroidism, unspecified, F17.200 - Nicotine dependence, unspecified, uncomplicated, I10 - Essential (primary) hypertension, K59.04 - Chronic idiopathic constipation, N95.1 - Menopausal and female climacteric states Vitamin D 25-OH Total 07/02/24 E03.9 - Hypothyroidism, unspecified, F17.200 - Nicotine dependence, unspecified, uncomplicated, I10 - Essential (primary) hypertension, K59.04 - Chronic idiopathic constipation, N95.1 - Menopausal and female climacteric states Referrals Gastroenterology Referral K59.04 - Chronic idiopathic constipation, Z12.11 - Encounter for screening for malignant neoplasm of colon Medications: New linaclotide (Linzess) 145 mcg PO QAM 30 caps 0RF
== END 2024-07-02 14:27 | disposition home or self-care (01) ==
LOC: HO.HMCC 13:24
PROVIDERS: PCP Internal Medicine; Visit Provider Internal Medicine
DX: E03.9 Hypothyroidism, unspecified (principal); I10 Essential (primary) hypertension; K59.04 Chronic idiopathic constipation; Z12.11 Encounter for screening for malignant neoplasm of colon

== ENCOUNTER → 2024-07-02 13:23 | Outpatient (BNVA) | payer OTHER, SELFPAY | PROVIDERS: PCP Internal Medicine; Visit Provider Internal Medicine | DX: E03.9 Hypothyroidism, unspecified (principal); I10 Essential (primary) hypertension; K59.04 Chronic idiopathic constipation | CPT/HCPCS: 99212 ==

== ENCOUNTER → 2024-07-12 13:10 | Outpatient (BNVA) | payer OTHER, SELFPAY | PROVIDERS: PCP Internal Medicine ==

== ENCOUNTER 2024-07-29 10:50 | Outpatient (REF) | payer OTHER, SELFPAY ==
--- OUTSIDE RECORDS SUMMARY | 2024-07-29 12:54 | XMS_ITS | Clinical Summary ---
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 30 capsule 07/06/2024 Active Active Problems No known active problems Encounters Date Type Department Care Team Description 07/16/2024 Telephone Gastroenterology - [address] [phone] Jamel Dunlap MD 07/06/2024 9:14 AM EDT - 07/06/2024 10:43 AM EDT Emergency [facility] Emergency [address] [place] [address] Acute left-sided low back pain with left-sided sciatica (Primary Dx); Varicose veins of left lower extremity with pain Discharge Disposition: Home or Self Care from Last 3 Months Medical History Medical History Date Comments Hypertension Disease of thyroid gland Social History Tobacco Use Types Packs/Day Years Used Date Smoking Tobacco: Never Assessed Comments Unknown Sex and Gender Information Value Date Recorded Sex Assigned at Female 07/06/2024 9:27 AM EDT Legal Sex Female 8:21 AM EDT Gender Identity Female 07/06/2024 9:27 AM EDT Sexual Orientation Straight 07/06/2024 9: 27 AM EDT Obstetrics History Last Filed Vital Signs Vital Sign Reading Time Taken Comments Blood Pressure 143/107 07/06/2024 8:24 AM EDT Pulse 75 07/06/2024 8:24 AM EDT Temperature 36.7 ??C (98 ??F) 07/06/2024 8:24 AM EDT Respiratory Rate 18 07/06/2024 8:24 AM EDT Oxygen Saturation 98% 07/06/2024 8:24 AM EDT Inhaled Oxygen Concentration - - Weight 99.8 kg (220 lb) 07/06/2024 8:24 AM EDT Height 167.6 cm (5' 6 ) 07/06/2024 8:24 AM EDT Body Mass Index 35.51 07/06/2024 8:24 AM EDT Plan of Treatment Upcoming Encounters Date Type Department Care Team (Late st Contact Info) Description 08/13/2024 11:00 AM EDT Consult Gastroenterology - [address] [place] [phone] Judy Alcazar PA [address] [place] [address] Health Maintenance Due Date Last Done Comments Breast Cancer Screening 1970 DTaP,Tdap,and Td Vaccines (1 - Tdap) 07/19/1987 Hepatitis B Vaccines (1 of 3 - 19+ 3-dose series) 07/19/1987 Cervical Cancer Screening: P ap Smear 1989 Pneumococcal Vaccine: 50+ Ye ars (1 of 1 - PCV) 2018 Zoster Vaccines (1 of 2) 2018 COVID-19 Vaccine ( - 2023-2 5 season) 2023 Influenza Vaccine (#1) 2023 Colorectal Cancer Screening: Colonoscopy 07/06/2024 Depression Screening 07/06/2024 HIV Screening 07/06/2024 Hepatitis C Screening 07/06/2024 Social Influencers of Health Screening 07/06/2024 HIB Vaccines Aged Out No longer eligi ble based on patient's age to complete this topic HPV Vaccines Aged Out No longer eligi ble based on patient's age to complete this topic Hepatitis A Vaccines Aged Out No long er eligible based on patient's age to complete this topic IPV Vaccines Aged Out No longer eligi ble based on patient's age to complete this topic MMR Vaccines Aged Out No longer eligi ble based on patient's age to complete this topic Meningococcal ACWY Vaccine Aged Out N o longer eligible based on patient's age to complete this topic Meningococcal B Vacine Aged Out No lo nger eligible based on patient's age to complete this topic Pneumococcal Vaccine: Pediat rics (0 to 5 Years) and At-Risk Patients (6 to 64 Years) Aged Out No longer eligible b ased on patient's age to complete this topic RSV Immunization Patients Un eloise 20 months Aged Out No longer eligible b ased on patient's age to complete this topic Varicella Vaccines Aged Out No longer eligible based on patient's age to complete this topic Insurance [facility] [employer] Care Teams Boiler Operator Helper Relationship Specialty Start Date End Date Sirena Ford MD [address] [place] [phone] PCP - General Internal Medicine 07/16/24
[2024-07-29 13:48] LABS: Alanine Aminotransferase 23 U/L (0-31); Anion Gap 12 (12-20); Aspartate Amino Transferase 21 U/L (5-31); Blood Urea Nitrogen 20 mg/dL (9-16); Calcium 9.3 mg/dL (8.4-10.2); Carbon Dioxide 30 mmol/L (22-29); Chloride 100 mmol/L (96-108); Estimated Glomerular Filt Rate > 60; Glucose Fasting 99 mg/dL (60-99); Potassium 3.3 mmol/L (3.3-5.1); Sodium 139 mmol/L (135-145)
[2024-07-29 14:00] LABS: Free T4 (Free Thyroxine) 1.17 ng/dL (0.71-1.85); Thyroid Stimulating Hormone 1.28 uIU/mL (0.32-4.0); Vitamin D 25-OH Total 44.4 ng/mL (>30)
== END 2024-07-29 10:51 | disposition home or self-care (01) ==
LOC: HO.HMGCLDS 10:50
PROVIDERS: PCP Internal Medicine; Visit Provider Internal Medicine
DX: K59.04 Chronic idiopathic constipation (principal); E03.9 Hypothyroidism, unspecified; F17.200 Nicotine dependence, unspecified, uncomplicated; I10 Essential (primary) hypertension; N95.1 Menopausal and female climacteric states
CPT/HCPCS: 36415; 80048; 82306; 84439; 84443; 84450; 84460

== ENCOUNTER 2024-07-30 11:32 | Outpatient (AMB) | payer OTHER, SELFPAY ==
[2024-07-30 11:57] VITALS: BP 136/92; PULSE 74; RESP 17; TEMP 36.7; O2SAT 97; BMI 35.0
--- NOTE | 2024-07-30 11:57 | A.OFFPC_ITS ---
Vital Signs 07/30/24 11:57 Height 5 ft 6 in Weight 217 lb BMI 35.0 BP 136/92 H Blood Pressure Location Lt brachial Position Sitting Respiration 17 Pulse 74 Pulse Source Pulse Oximeter Temp 98.1 F Temp Source Oral Pulse Oximetry (%) 97 Oxygen Delivery Method Room Air Intake Visit Reasons: Med Review Intake Note: Pt is here today for her 4weeks f/u medication Allergies No Known Drug Allergies Allergy (Verified 07/30/24 12:18) unknown Environmental Allergy (Unknown, Uncoded 07/30/24 12:18) Unknown Medication List - Last Reconciled 07/30/24 by Sirena Ford MD bupropion HCl XL 300 mg PO QAM cetirizine 10 mg PO DAILY cholecalciferol (vitamin D3) 125 mcg PO DAILY hydrochlorothiazide 25 mg PO QAM levothyroxine 75 mcg PO DAILY magnesium oxide 500 mg PO BID valacyclovir 500 mg PO DAILY Tobacco use date assessed: 07/30/24 Dental Screening Dental Screen Date: 07/30/24 Did you have a dental visit in the last 12 months?: Yes Did you have a dental problem in the last 6 months where you did not have access to dental care?: Yes Was dental information given to patient?: Patient has dentist HPI Med Review HPI Details 54 year-old lady with history of 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 She has been taking her medications as directed, has been feeling well, with no complaints at present time. Patient states her anxiety is controlled well with bupropion HCL 3000 mg taken once a day in a.m.. Denies any sleeping difficulties when taking the medication., [facility] Medical History Colon cancer screening Obesity (BMI 30-39.9) Vaccine refused by patient Acquired hypothyroidism Vitamin D deficiency Numbness and tingling of right lower extremity Spider veins of both lower extremities Breast cancer screening Smoker unmotivated to quit Dyslipidemia Venancio's thyroiditis Essential hypertension IBS (irritable bowel syndrome) Recurrent cold sores Depression with anxiety Seasonal allergies Menopause syndrome Surgical History History of carpal tunnel surgery Trigger thumb, right thumb History of flexible sigmoidoscopy Family History Father Schizophrenia Diabetes mellitus HTN (hypertension) Depression Bladder cancer Liver cancer Mental health disorder Mother Diabetes mellitus HTN (hypertension) Breast cancer Mental health disorder Maternal Grandmother Heart problem Maternal Grandfather Pneumonia Paternal Grandmother No problems noted. Paternal Grandfather No problems noted. Sister Substance use disorder Mental health disorder Sister Mental health disorder Social History Housing: Condominium Alcohol intake: current Patient Tobacco Use Status: Current everyday Tobacco user e-Cigarette/Vaping Use: Never Used service: No Current occupational status: employed Cognitive needs: No Hearing needs: No Vision needs: No Questionnaire Thrive Questionnaire Date Thrive assessed: 08/10/22 Currently or been in a relationship where the following occur: I choose not to answer THRIVE Score: 0 GABBIE-7 AMB Questionnaire GABBIE-7 Date GABBIE - 7 assessed: 08/10/22 Source: Developed by Drs. Trae Boggs, Emi Soriano, Manuel Salgado and colleagues, with an educational raquel from [employer]. Physical exam (Primary Care) Vital Signs: Last Vital Signs Temp 98.1 F 07/30/24 11:57 Pulse 74 07/30/24 11:57 Resp 17 07/30/24 11:57 BP 136/92 H 07/30/24 11:57 Pulse Ox 97 07/30/24 11:57 Oxygen Delivery Method Room Air 07/30/24 11:57 BMI result Body Mass Index 35.0 BMI Assessment/Plan discussion: High BMI High, discussed plan: lifestyle, weight reduction, dietary and physical activity Tobacco/Smoking Status: Tobacco use Status Tobacco use date assessed 07/30/24 07/30/24 12:02 Patient Tobacco Use Status Current everyday Tobacco 07/30/24 12:02 e-Cigarette/Vaping Use Never Used 07/30/24 12:02 Are you ready to quit: No Thrive Assessment: Date of Thrive Assessment Date Thrive assessed 08/10/22 07/30/24 12:02 Currently or been in a relationship where the following occur: I choose not to answer Const General: comfortable, no acute distress and alert Nutritional Appearance: obese Orientation/consciousness: patient oriented x3 HENMT Other: Alert oriented x3, no acute cardiorespiratory distress ambulatory with normal gait Eyes General: appearance normal, both eyes and all related structures Neck Neck: Yes full ROM, Yes no lymphadenopathy and Yes supple Resp Effort & Inspection: normal respiratory effort and able to speak in complete sentences Auscultation: clear to auscultation bilaterally Cardio Rate: regular rate Rhythm: regular rhythm Heart sounds: S1 normal heart sound present and S2 normal heart sound present GI Palpation (GI): Soft to palpation, nontender and no guarding Skin General skin exam: no rashes or lesions noted Neuro General: patient oriented x3, gait normal, moves all extremities, Normal light touch and pain sensation, no focal motor deficits and CN's II-XI intact bilaterally Extrem Other: superficial varicosities seen in both lower extremities, no calf tenderness, no pedal edema Psych Appearance: grossly normal and well kempt Mental Status: mental status grossly normal Speech and movement: Normal speech and movement present Affect: normal affect Results Reviewed Results Reviewed: RUN: 07/30/24 6927 PAGE 1 [facility] [address] [place] [id number] Vp Respiratory: Kyrie Singh M.D. Specimen Inquiry Name: Gladys Cota Age/Sex: 54/F [facility] 1970 [id number] Unit#: [id number] Attend Dr: Sirena Ford MD Re07/29/24 Status: DEP REF Location: HO.HMGCLDS Disch: SPEC : [id number] LILI: 07/29/24 STATUS: COMP REQ : [id number] RECD: 07/29/[address]: Sirena Ford MD COMP: 07/29/24 ENTERED: 07/29/[address]: ORDERED: Met Prof Fast, AST, ALT, Vitamin D 25-OH, Free T4, TSH Test Result Flag Reference Sodium 139 135-145 mmol/L Potassium 3.3 3.3-5.1 mmol/L CL 100 96-108 mmol/L CO2 30 H 22-29 mmol/L Gap 12 12-20 BUN 20 H 9-16 mg/dL Creat 0.70 0.5-1.4 mg/dL eGFR > 60 Chronic Kidney Disease: Estimated GFR < 60 mL/min/1.73m2 Severe Kidney Disease: Estimated GFR < 15 mL/min/1. 73m2 FBS 99 60-99 mg/dL CA 9.3 # 8.4-10.2 mg/dL AST (GOT) 21 5-31 U/L ALT (GPT) 23 0-31 U/L Vitamin D 25-OH 44.4 >30 ng/mL Health Based Reference Values* < 20 ng/mL Deficient 20-30 ng/mL Insufficient > 30 ng/mL Sufficient *Sonia MERCADO. N Engl J Med. 2007;357:266-280 There is no well-established upper level of normal vitamin D levels. Some laboratories use 50 ng/mL as an upper limit of normal. However, toxicity is patient-dependent and may occur at any level. Careful correlation with the patient's presentation is necessary and, if there is concern for vitamin D toxicity, treatment should be considered irrespective of the serum level. Care must be taken in interpreting Vitamin D results from different laboratories and methodologies. Published data demonstrated that results from patients undergoing hemodialysis may show a negative bias when tested with various automated 25-OH vitamin D assays when compared to LC-MS/MS. When testing samples from patients whose predominant form of Vitamin D is Vitamin D2, such as patients receiving Vitamin D2 supplementation, results that are subtherapeutic should be confirmed with another method such as LC-MS/MS. Free T4 1.17 0.71-1.85 ng/dL TSH 3rd Gen. 1.28 0.32-4.0 uIU/mL TSH 3rd Generation ([facility]) Coding Level of Care Code Est Pt Level 4 (42712) Complex EM visit Add On G2211 Diagnoses Acquired hypothyroidism E03.9 Depression with anxiety F41.8 Essential hypertension I10 Venancio's thyroiditis E06.3 Smoker unmotivated to quit F17.200 Assessment & Plan Assessment & Plan (1) Acquired hypothyroidism: Code(s): E03.9 - Hypothyroidism, unspecified Category: Medical Plan: Latest thyroid levels are within normal limits, continue current dose of levothyroxine at 75 mcg daily in a.m. (2) Depression with anxiety: Code(s): F41.8 - Other specified anxiety disorders Category: Medical Plan: Controlled with bupropion HCL XL 300 mg daily in a.m. (3) Essential hypertension: Code(s): I10 - Essential (primary) hypertension Category: Medical Plan: Continue chlorothiazide 25 mg daily in a.m.. Reinforced importance of following a low sodium diet, getting regular exercise, and lowering stress levels. (4) Venancio's thyroiditis: Code(s): E06.3 - Autoimmune thyroiditis Category: Medical Plan: Continue on levothyroxine same dose (5) Smoker unmotivated to quit: Code(s): F17.200 - Nicotine dependence, unspecified, uncomplicated Category: Social Hx Plan: Patient strongly advised to stop smoking, as smoking damages blood vessels, degenerative of joints and spine, damage to lungs and heart., predisposes to developing certain cancers like lung, breast, bladder, colon. Recommended to try decreasing cigarette use by 1-2 cigarettes a day. Advised to monitor what triggers are for smoking so that this can be discussed on the next office visit. We can discuss different options to quit smoking when ready. Orders: Orders Lipid Panel 11/22/24 E03.9 - Hypothyroidism, unspecified, E06.3 - Autoimmune thyroiditis, E66.9 - Obesity, unspecified, E78.5 - Hyperlipidemia, unspecified, F17.200 - Nicotine dependence, unspecified, uncomplicated, F41.8 - Other specified anxiety disorders, I10 - Essential (primary) hypertension, N95.1 - Menopausal and female climacteric states, R73.01 - Impaired fasting glucose Alanine Aminotransferase 11/22/24 E03.9 - Hypothyroidism, unspecified, E06.3 - Autoimmune thyroiditis, E66.9 - Obesity, unspecified, E78.5 - Hyperlipidemia, unspecified, F17.200 - Nicotine dependence, unspecified, uncomplicated, F41.8 - Other specified anxiety disorders, I10 - Essential (primary) hypertension, N95.1 - Menopausal and female climacteric states, R73.01 - Impaired fasting glucose Aspartate Amino Transferase 11/22/24 E03.9 - Hypothyroidism, unspecified, E06.3 - Autoimmune thyroiditis, E66.9 - Obesity, unspecified, E78.5 - Hyperlipidemia, unspecified, F17.200 - Nicotine dependence, unspecified, uncomplicated, F41.8 - Other specified anxiety disorders, I10 - Essential (primary) hypertension, N95.1 - Menopausal and female climacteric states, R73.01 - Impaired fasting glucose Basic Metabolic Panel Fasting 11/22/24 E03.9 - Hypothyroidism, unspecified, E06.3 - Autoimmune thyroiditis, E66.9 - Obesity, unspecified, E78.5 - Hyperlipidemia, unspecified, F17.200 - Nicotine dependence, unspecified, uncomplicated, F41.8 - Other specified anxiety disorders, I10 - Essential ( primary) hypertension, N95.1 - Menopausal and female climacteric states, R73.01 - Impaired fasting glucose Hemoglobin A1c 11/22/24 E03.9 - Hypothyroidism, unspecified, E06.3 - Autoimmune thyroiditis, E66.9 - Obesity, unspecified, E78.5 - Hyperlipidemia, unspecified, F17.200 - Nicotine dependence, unspecified, uncomplicated, F41.8 - Other specified anxiety disorders, I10 - Essential (primary) hypertension, N95.1 - Menopausal and female climacteric states, R73.01 - Impaired fasting glucose Vitamin D 25-OH Total 11/22/24 E03.9 - Hypothyroidism, unspecified, E06.3 - Autoimmune thyroiditis, E66.9 - Obesity, unspecified, E78.5 - Hyperlipidemia, unspecified, F17.200 - Nicotine dependence, unspecified, uncomplicated, F41.8 - Other specified anxiety disorders, I10 - Essential (primary) hypertension, N95.1 - Menopausal and female climacteric states, R73.01 - Impaired fasting glucose Magnesium 11/22/24 E03.9 - Hypothyroidism, unspecified, E06.3 - Autoimmune thyroiditis, E66.9 - Obesity, unspecified, E78.5 - Hyperlipidemia, unspecified, F17.200 - Nicotine dependence, unspecified, uncomplicated, F41.8 - Other speci fied anxiety disorders, I10 - Essential (primary) hypertension, N95.1 - Menopausal and female climacteric states, R73.01 - Impaired fasting glucose
--- OUTSIDE RECORDS SUMMARY | 2024-07-30 14:08 | XMS_ITS | Clinical Summary ---
Author Organization [facility] Address [address] [place] [address] Phone Care Team Providers Care K 9 Handler/ Deputy Name Role Phone Sirena Ford MD Primary Care Provider Allergies No known active allergies Medications gabapentin (NEURONTIN) 100 mg capsule Take 1 capsule (100 mg total) by mouth 3 (three) times a day for 10 days. 30 capsule 07/06/2024 Active Active Problems No known active problems Encounters Date Type Department Care Team Description 07/16/2024 Telephone Gastroenterology - [address] [phone] Jamel Dunlap MD 07/06/2024 9:14 AM EDT - 07/06/2024 10:43 AM EDT Emergency [facility] [address] [place] [address] Acute left-sided low back pain [...] EDT Consult Gastroenterology - [address] [facility] [address] [place] [phone] Judy Alcazar PA [address] [place] [address] Health Maintenance Due Date Last Done Comments [...] age to complete this topic Meningococcal B Vaccine Aged Out No l onger eligible based on patient's age to complete [...] patient's age to complete this topic Insurance [facility] PLAN Care Teams K 9 Handler/ Deputy Relationship Specialty Start Date End Date Sirena Ford MD [address] [place] [phone] PCP - General Internal Medicine 07/16/24
== END 2024-07-30 12:41 | disposition home or self-care (01) ==
LOC: HO.HMCC 11:32
PROVIDERS: PCP Internal Medicine; Visit Provider Internal Medicine
DX: E03.9 Hypothyroidism, unspecified (principal); F41.8 Other specified anxiety disorders; I10 Essential (primary) hypertension; E06.3 Autoimmune thyroiditis; F17.200 Nicotine dependence, unspecified, uncomplicated

== ENCOUNTER → 2024-07-30 11:32 | Outpatient (BNVA) | payer OTHER, SELFPAY | PROVIDERS: PCP Internal Medicine; Visit Provider Internal Medicine | DX: E06.3 Autoimmune thyroiditis (principal); E03.9 Hypothyroidism, unspecified; E78.5 Hyperlipidemia, unspecified; F41.8 Other specified anxiety disorders; I10 Essential (primary) hypertension; F17.200 Nicotine dependence, unspecified, uncomplicated; Z79.899 Other long term (current) drug therapy | CPT/HCPCS: 99212 ==

== ENCOUNTER 2025-01-13 12:54 | Emergency (ER) | payer OTHER, SELFPAY ==
[2025-01-13 13:06] VITALS: BP 172/97; BP 180/90; PULSE 74; PULSE 79; RESP 16; TEMP 36.6; O2SAT 96; O2SAT 98; BMI 33.9
--- NOTE | 2025-01-13 13:12 | ED_ITS ---
HPI - Fall General Chief Complaint: Fall Stated Complaint: fall, hip pain, abrasion left knee Time Seen by Provider: 01/13/25 13:04 Source: patient and EMS Mode of arrival: EMS Limitations: no limitations History of Present Illness ED Provider: DR. Gray HPI Narrative: 54-year-old female came in by ambulance for evaluation after a mechanical fall. Patient was walking when she tripped on the edge of the sidewalk falling forward try to ease the fall by extending both hands patient landed on both hands, left knee, and left hip, no no head injury, no LOC, no headache, no blood thinner, no patient could not move after the fall called 911 who transport her to the ED, patient sustained a superficial abrasion to the left knee. Patient is not up-to-date on her tetanus vaccination. Related Data Home Medications ?Medication ?Instructions ?Recorded ?Confirmed cetirizine 10 mg tablet 10 mg PO DAILY 03/04/2010/22 cholecalciferol (vitamin D3) 125 125 mcg PO DAILY 09/1311/02/23 mcg (5,000 unit) capsule Previous Rx's ?Medication ?Instructions ?Recorded magnesium oxide 500 mg PO BID #60 tabs 03/22 hydrochlorothiazide 25 mg tablet 25 mg PO QAM #90 tabs 07/07/24 levothyroxine 75 mcg tablet 75 mcg PO DAILY #90 tabs 0 11/22/24 valacyclovir 500 mg tablet 500 mg PO DAILY #90 tabs bupropion HCl 300 mg 24 hr tablet, 300 mg PO QAM #90 t abs 12/15/24 extended release oxycodone 5 mg tablet 5 mg PO Q8H PRN pain #7 tabs 01/13/25 Allergies Allergy/AdvReac Type Severity Reaction Status Date / Time No Known Drug Allergies Allergy unknown Verified 01/13/25 13:08 Environmental Allergy Unknown Unknown Uncoded 07/30/24 12:18 Review of Systems Review of Systems: All other systems are reviewed and are negative Constitutional: Reports as per HPI and Reports no additional constitutional complaints Eyes: Reports as per HPI and Reports no additional eye complaints Reports system reviewed and no additional complaints, except as documented Cardiovascular: Reports as per HPI and Reports no additional cardiovascular complaints Respiratory: Reports as per HPI and Reports no additional respiratory complaints Gastrointestinal: Reports as per HPI and Reports no additional gastrointestinal complaints Genitourinary: Reports no additional female genitourinary complaints Musculoskeletal: Reports no additional musculoskeletal complaints Skin/Breast: Reports system reviewed and no additional complaints, except as docu Psychiatric: Reports no additional psychiatric complaints Endocrine: Reports no additional endocrine complaints Hematologic/Lymphatic: Reports no additional hematologic/lymphatic complaints Allergic/Immunologic: Reports no additional allergic/immunologic complaints Reports system reviewed and no additional complaints, except as documented and Reports Abnormal speech present [facility] [place] Past Medical History Medical History Colon cancer screening Obesity (BMI 30-39.9) Vaccine refused by patient Acquired hypothyroidism Vitamin D deficiency Numbness and tingling of right lower extremity Spider veins of both lower extremities Breast cancer screening Smoker unmotivated to quit Dyslipidemia Venancio's thyroiditis Essential hypertension IBS (irritable bowel syndrome) Recurrent cold sores Depression with anxiety Seasonal allergies Menopause syndrome Surgical History History of carpal tunnel surgery Trigger thumb, right thumb History of flexible sigmoidoscopy Family History Family History Father Schizophrenia Diabetes mellitus HTN (hypertension) Depression Bladder cancer Liver cancer Mental health disorder Mother Diabetes mellitus HTN (hypertension) Breast cancer Mental health disorder Maternal Grandmother Heart problem Maternal Grandfather Pneumonia Paternal Grandmother No problems noted. Paternal Grandfather No problems noted. Sister Substance use disorder Mental health disorder Sister Mental health disorder Social History Social History Housing: Condominium Alcohol intake: current Patient Tobacco Use Status: Current everyday Tobacco user e-Cigarette/Vaping Use: Never Used Advance Directives: No Advance Directives Information Provided: No service: No Current occupational status: employed Cognitive needs: No Hearing needs: No Vision needs: No Physical Exam Vital Signs: Vital Signs: Last Vital Signs Temp 97.9 F 01/13/25 13:06 Pulse 74 01/13/25 13:06 Resp 16 01/13/25 13:06 BP 172/97 H 01/13/25 13:06 Pulse Ox 96 01/13/25 13:06 O2 Del Method Room Air 01/13/25 13:06 BMI result Body Mass Index 33.9 Vital signs have been reviewed and appear to be correct. Blood pressure elevated. Heart rate normal. Respiratory rate normal. Temperature normal. Oxygen saturation normal. Appearance: Alert. Oriented X3. No acute distress. Head: Normal external exam. Normocephalic. Atraumatic. No Lovett signs noted. No raccoon eyes noted Eyes: PERRLA. EOMI. Conjunctiva and sclera normal. Eyelids normal. ENT: TM's Normal. Pharynx normal. Uvula midline. Moist mucous membranes. No trismus noted. No drooling noted. No muffled voice noted. Neck: Normal inspection. Neck supple. FROM. No adenopathy. Thyroid Normal. No meningeal signs. No neck mass noted. CVS: Normal heart rate and rhythm. Heart sound normal. No murmurs noted. Pulses normal throughout. Respiratory: No respiratory distress. Painless inspiration. Breath sounds n ormal. No wheezes/rales/rhonchi noted. Chest nontender. No accessory muscle usage noted or decreased air movement noted. Abdomen: Soft and nontender. Bowel sounds normal in all 4 quadrants. No diste ntion noted. No organomegaly noted. No visible injury noted. Back: No CVA tenderness. Lumbar spine reproducible tenderness, no step-off, no deformity. Skin: Skin warm and dry. Normal skin color. Normal skin turgor. No rashes/lesions/lacerations noted. Extremities: Left hip slight tenderness, no deformity, no lower extremity shortness, + superficial abrasion to the left knee, no deformity, neurovascularly intact. Neuro: Oriented X 3. Cranial nerve exam: II-XII are grossly intact No motor deficit. No sensory deficit. Reflexes normal. Course Reevaluation(s) Reevaluation #1: S/p falling, back/ pelvis/left hip/left knee x-ray are negative for fracture. Patient is able to ambulate in the ED, will discharge to follow-up with PCP. Time: 15:41 Medications Administered Discontinued Medications Generic Name Dose Route Start Last Admin Trade Name Freq PRN Reason Stop Dose Admin Bacitracin 1 appl 01/13/25 13:15 01/13/25 13:36 Bacitracin Oint 0.9 Gm Packet TOPICAL 01/13/25 13:16 1 appl ONCE ONE Administration Protocol Diphtheria/Tetanus/Acell Pertussis 0.5 ml 01/13/25 13:21 01/13/25 13:23 Diphth,Pertus(Acell),Tet Adult 0.5 Ml Syringe IM 01/13/25 13:22 Not Given .ONCE ONE Ibuprofen 600 mg 01/13/25 13:10 01/13/25 13:36 Ibuprofen 600 Mg Tablet PO 01/13/25 13:11 600 mg ONCE ONE Administration Oxycodone HCl 5 mg 01/13/25 13:10 01/13/25 13:36 Oxycodone Hcl Immed Release 5 Mg Tablet PO 01/13/25 13:11 5 mg ONCE ONE Administration Medical Decision Making Differential Diagnosis Differential Diagnoses: The differential diagnosis associated with the presentation includes ( Closed head injury, cervical spine injury, chest injury , back injury, abdominal injury, extremities injury.) Admission/Observation Consideration of admission/observation: Escalation of care including admiss ion/observation considered Lab Data MDM Lab Attestation statement: I reviewed the patient's lab results. Independent Interpretation I performed an independent interpretation of an: Plain X-Ray ( pelvis/left hip, a left knee, lumbar spine x-ray: No acute fracture.) Radiology Impression Discussion of test interpretation with radiology: I have reviewed the radiologist's reading. Discharge Plan Discharge Clinical Impression: Accident due to mechanical fall without injury, Lumbar contusion, Contusion of left hip, Contusion of left knee Patient Disposition: Home, Self-Care Instructions: Contusion in Adults (ED) Prescriptions: New oxycodone 5 mg tablet 5 mg PO Q8H PRN (Reason: pain) Qty: 7 0RF Rx Instructions: Partial Fill upon patient request. No Action hydrochlorothiazide 25 mg tablet 25 mg PO QAM Qty: 90 1RF valacyclovir 500 mg tablet 500 mg PO DAILY Qty: 90 1RF levothyroxine 75 mcg tablet 75 mcg PO DAILY Qty: 90 1RF bupropion HCl 300 mg tablet extended release 24 hr 300 mg PO QAM Qty: 90 1RF cetirizine 10 mg tablet 10 mg PO DAILY cholecalciferol (vitamin D3) 125 mcg (5,000 unit) capsule 125 mcg PO DAILY magnesium oxide 500 mg tablet 500 mg PO BID Qty: 60 6RF Referrals: Sirena Ford MD [Primary Care Provider, Internal Medicine] Print Language: Greenlandic
[2025-01-13] MEDS: oxyCODONE HCl Immed Release 5 MG TABLET PO (13:36)
[2025-01-13 16:04] VITALS: BP 172/97; PULSE 74; RESP 16; TEMP 36.6; O2SAT 96
== END 2025-01-13 16:06 | disposition home or self-care (01) ==
PROVIDERS: Emergency Provider Emergency Medicine; PCP Internal Medicine
DX: S80.02XA Contusion of left knee, initial encounter (principal); S70.02XA Contusion of left hip, initial encounter; S30.0XXA Contusion of lower back and pelvis, initial encounter; W01.10XA Fall on same level from slipping, tripping and stumbling with subsequent striking against unspecified object, initial encounter; Y93.89 Activity, other specified; Y92.488 Other paved roadways as the place of occurrence of the external cause; Y99.8 Other external cause status
CPT/HCPCS: 72100; 73502; 73564; 99283; 99284

== ENCOUNTER → 2025-01-13 13:10 | Outpatient (BNV) | payer OTHER, SELFPAY | PROVIDERS: Emergency Provider Emergency Medicine; PCP Internal Medicine; Visit Provider Radiology Diagnostic Radiology | DX: M25.552 Pain in left hip (principal); M16.0 Bilateral primary osteoarthritis of hip; M51.360 Other intervertebral disc degeneration, lumbar region with discogenic back pain only; W19.XXXA Unspecified fall, initial encounter | CPT/HCPCS: 72100; 73502; 73564 ==

== ENCOUNTER 2025-01-16 08:26 | Outpatient (AMB) | payer OTHER, SELFPAY ==
[2025-01-16 08:32] VITALS: BP 126/90; PULSE 70; RESP 15; TEMP 36.7; O2SAT 97; BMI 34.7
--- NOTE | 2025-01-16 08:32 | MHC.PC.OV ---
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: No Allergies No Known Drug Allergies Allergy (Verified 01/16/25 08:39) unknown Environmental Allergy (Unknown, Uncoded 01/16/25 08:39) Unknown Medication List - Last Reconciled 01/16/25 by Sirena Ford MD bupropion HCl XL 300 mg PO QAM cetirizine 10 mg PO DAILY cholecalciferol (vitamin D3) 125 mcg PO DAILY gabapentin 300 mg PO TID hydrochlorothiazide 25 mg PO QAM levothyroxine 75 mcg PO DAILY magnesium oxide 500 mg PO BID meloxicam 15 mg PO DAILY oxycodone 5 mg PO Q8H PRN valacyclovir 500 mg PO DAILY Tobacco use date assessed: 01/16/25 Dental Screening Dental Screen Date: 07/30/24 HPI ED follow up/ok per AE HPI Details 54-year-old lady here today complaining of pain in her left knee elbow and lower back pain after tripping and falling on the sidewalk 01/13/2025.. Patient states that she tripped on the edge of the sidewalk, falling forward try to break the fall by extending both hands patient landed on both hands, left knee, and left hip, no no head injury, no LOC, no headache, no blood thinner, no patient could not move after the fall called 911 who transport her to the ED, patient sustained a superficial abrasion to the left knee. Wound was cleansed at the ER , but refused Tdap vaccination. She was discharged on oxycodone 5 mg to take once a day only as needed for severe pain and advised to start taking ibuprofen 600 mg once a day as needed for pain. X-ray of pelvis, left hip, left knee and lumbar spine x-ray did not show any acute fracture. Complains of pain in lower back worse with sitting, having difficulty climbing stairs due to pain in her left knee and lower back. Has been given oxycodone which affords temporary relief, ibuprofen does not seem to help as much. She has been applying ice to her lower back and left knee affording only temporary pain relief as well. [facility] Medical History Colon cancer screening Obesity (BMI 30-39.9) Vaccine refused by patient Acquired hypothyroidism Vitamin D deficiency Numbness and tingling of right lower extremity Spider veins of both lower extremities Breast cancer screening Smoker unmotivated to quit Dyslipidemia Venancio's thyroiditis Essential hypertension IBS (irritable bowel syndrome) Recurrent cold sores Depression with anxiety Seasonal allergies Menopause syndrome Surgical History History of carpal tunnel surgery Trigger thumb, right thumb History of flexible sigmoidoscopy Family History Father Schizophrenia Diabetes mellitus HTN (hypertension) Depression Bladder cancer Liver cancer Mental health disorder Mother Diabetes mellitus HTN (hypertension) Breast cancer Mental health disorder Maternal Grandmother Heart problem Maternal Grandfather Pneumonia Paternal Grandmother No problems noted. Paternal Grandfather No problems noted. Sister Substance use disorder Mental health disorder Sister Mental health disorder Social History Housing: Condominium Alcohol intake: current Patient Tobacco Use Status: Current everyday Tobacco user e-Cigarette/Vaping Use: Never Used service: No Current occupational status: employed Cognitive needs: No Hearing needs: No Vision needs: No Questionnaire PHQ-9 Over the last 2 weeks, how often have you been bothered by any of the following problems? 1. Little interest or pleasure in doing things: nearly every day 2. Feeling down, depressed, or hopeless: several days 3. Trouble falling or staying asleep, or sleeping too much: more than half the days 4. Feeling tired or having little energy: several days 5. Poor appetite or overeating: several days 6. Feeling bad about yourself - or that you are a failure or have let yourself or your family down: several days 7. Trouble concentrating on things, such as reading the newspaper or watching television: several days 8. Moving or speaking so slowly that other people could have noticed. Or the opposite - being so fidgety or restless that you have been moving around a lot more than usual: several days 9. Thoughts that you would be better off or of hurting yourself in some way: several days Total score: 12 Source: Developed by Drs. Trae Boggs, Emi Soriano, Manuel Salgado and colleagues, with an educational raquel from [employer]. Thrive Questionnaire Date Thrive assessed: 07/02/24 I am a: Patient What is your living situation today?: I have a place to live, but I am worried about losing it in the future Within the past 12 months, did the food you bought not last and you didn't have the money to get more?: Often true Within the past 12 months, did you worry whether your food would run out before you got money to buy more?: Often true Do you have trouble paying for medicines?: No Do you have trouble getting transportation to medical appointments?: No Do you have trouble paying your heating and electricity bill?: Yes Do you have trouble taking care of your child, family member or friend?: No Do you have trouble with day-to-day activities such as bathing, preparing meals, shopping, managing finances, etc.?: No Are you currently unemployed and looking for a job?: No Are you interested in more education?: No Please select the resources that you would like help with: Job search/training Currently or been in a relationship where the following occur: I choose not to answer THRIVE Score: 4 AUDIT C Alcohol Use Questionnaire (AUDIT-C) 1. How often do you have a drink containing alcohol?: Never Total Score: 0 GABBIE-7 AMB Questionnaire GABBIE-7 Date GABBIE - 7 assessed: 01/16/25 Feeling nervous, anxious, or on edge: 0 = Not at all Not being able to stop or control worryin = Not at all Worrying too much about different things: 0 = Not at all Trouble relaxin = Not at all Being so restless that it is hard to sit still: 0 = Not at all Becoming easily annoyed or irritable: 0 = Not at all Feeling afraid as if something awful might happen: 0 = Not at all Total GABBIE-7 score (0-4 normal; 5-9 mild; 10-14 moderate; 15-21 severe): 0 Source: Developed by Drs. Trae Boggs, Emi oSriano, Manuel Salgado and colleagues, with an educational raquel from [employer]. GABBIE-7 Assessment Billing GABBIE-7 Assessment Tool: GABBIE-7 Assessment 99938 Review of Systems Const All systems reviewed & are unremarkable except as noted in HPI and below Physical exam (Primary Care) Vital Signs: Last Vital Signs Temp 98.1 F 01/16/25 08:32 Pulse 70 01/16/25 08:32 Resp 15 01/16/25 08:32 BP 126/90 H 01/16/25 08:32 Pulse Ox 97 01/16/25 08:32 Oxygen Delivery Method Room Air 01/16/25 08:32 BMI result Body Mass Index 34.7 Tobacco/Smoking Status: Tobacco use Status Tobacco use date assessed 01/16/25 01/16/25 08:38 Patient Tobacco Use Status Current everyday Tobacco 01/16/25 08:38 e-Cigarette/Vaping Use Never Used 01/16/25 08:38 PHQ-9: PHQ-9 Score PHQ-9: Total score 12 01/16/25 08:41 Thrive Assessment: Date of Thrive Assessment Date Thrive assessed 07/02/24 01/16/25 08:38 Currently or been in a relationship where the following occur: I choose not to answer Const General: no acute distress and alert Nutritional Appearance: obese Orientation/consciousness: patient oriented x3 HENMT Head: Yes normocephalic and Yes atraumatic Eyes General: appearance normal, both eyes and all related structures Neck Neck: Yes full ROM, Yes no lymphadenopathy and Yes supple Resp Effort & Inspection: normal respiratory effort and able to speak in complete sentences Auscultation: clear to auscultation bilaterally Cardio Rate: regular rate Rhythm: regular rhythm Heart sounds: S1 normal heart sound present and S2 normal heart sound present GI Palpation (GI): Soft to palpation, nontender and no guarding Back/Spine/Pelvis Other: Spine midline, tenderness on palpation over paraspinal muscles at lumbar area, negative straight leg raising sign Skin Other: Superficial abrasion over anterior aspect of left knee and over left elbow Neuro General: patient oriented x3, moves all extremities, Normal light touch and pain sensation, no focal motor deficits and CN's II-XI intact bilaterally Gait exam (Neuro): Antalgic gait present Extrem Other: Decreased range of motion left knee joint due to pain and stiffness, slight swelling over left patella Coding Level of Care Code Est Pt Level 4 (82722) Diagnoses Acute bilateral low back pain without sciatica M54.50 Back pain laterality: bilateral Chronicity: acute Sciatica presence: without sciatica Abrasion, left knee, sequela S80.212S Additional Codes GABBIE-7 Assessment Billing - GABBIE-7 Assessment Tool: GABBIE-7 Assessment [id number] ([id number]) Assessment & Plan Assessment & Plan (1) Low Back Pain: Code(s): M54.50 - Low back pain, unspecified Qualifiers: Back pain laterality: bilateral Chronicity: acute Sciatica presence: without sciatica Qualified Code(s): M54.50 - Low back pain, unspecified Plan: Prescription sent for tizanidine 4 mg per tablet to take 1 tablets twice a day. May cut dose in half during in the morning if it makes her drowsy. Short course of oxycodone 5 mg per tablet prescribed 1 tablet once a day only reserved for severe pain may continue taking ibuprofen or Tylenol arthritis every 8 hours as needed for pain relief. Advised to apply Salonpas patch to affected area in lower back every 8 hours as needed. Referred for physical therapy. (2) Abrasion, left knee, sequela: Code(s): S80.212S - Abrasion, left knee, sequela Plan: Lean area with soap and water. Apply bacitracin once a day for the next 5 days, keep it covered with a clean dressing until wound is dry and healed. Patient declined getting tetanus shot Orders: Orders PT Evaluation and Treatment Today M54.50 - Low back pain, unspecified Medications: New tizanidine 4 mg PO BID PRN 30 tabs 0RF muscle spasticity Refilled oxycodone Partial Fill upon patient request. 5 mg PO Q8H PRN 7 tabs 0RF pain
--- OUTSIDE RECORDS SUMMARY | 2025-01-16 09:00 | XMS_ITS | Clinical Summary ---
Author Organization 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 30 capsule 5 Active buPROPion XL (WELLBUTRIN XL) 300 mg 24 hr tablet Take 1 tablet (300 mg total) by mouth 1 (one) time each day in the morning. 5 Active hydroCHLOROthiaz yelitza (HYDRODIURIL) 25 mg tablet Take 1 tablet (25 mg total) by mouth 1 (one) time each day in the morning. 5 Active levothyroxine (SYNTHROID, LEVOTHROID) 75 mcg tablet Take 1 tablet (75 mcg total) by mouth 1 (one) time each day. 5 Active magnesium oxide 500 mg magnesium tablet Take 1 tablet by mouth 2 (two) times a day. 4 Active valACYclovir (VALTREX) 500 mg tablet Take 1 tablet (500 mg total) by mouth 1 (one) time each day. 5 Active cholecalciferol, vitamin D3, 125 mcg (5,000 unit) tablet,disintegr ating Dissolve on top of the tongue. Active cetirizine (ZyrTEC) 10 mg tablet Take 1 tablet (10 mg total) by mouth 1 (one) time each day. Active bisacodyL (DULCOLAX) 5 mg EC tablet Take 2 tablets by mouth right before beginning bowel prep. See instructions provided by the office 2 tablet 5 Active polyethylene glycol (Golytely) 236-22.74-6.74 -5.86 gram solution Take 4L by mouth once for one dose. May substitue any PEG. Starting at 6PM the night before your procedure drink 1 8oz glasses at your own pace until you complete half of the gallon. Finish 2nd half of the gallon 5 hours before your procedure. 4000 mL 5 Active linaCLOtide (LINZESS) 290 mcg capsuleIndicatio ns:Chronic idiopathic constipation Take 1 capsule (290 mcg total) by mouth 1 (one) time each day. 30 each 5 5 025 Active Active Problems Problem Noted Date Diagnosed Date Anxiety 08/13/2024 Acquired hypothyroidism Depression with anxiety Dyslipidemia Essential hypertension Venancio thyroiditis Surgical History Surgery Date Site/Laterality Comments CARPAL TUNNEL RELEASE FLEXIBLE SIGMOIDOSCOPY TRIGGER FINGER RELEASE Right thumb Medical History Medical History Date Comments Hypertension Disease of thyroid gland Obesity Acquired hypothyroidism Vitamin D deficiency Numbness and tingling of right lower extremity Colon cancer screening Spider veins of both lower extremities Breast cancer screening Menopause syndrome Depression with anxiety IBS (irritable bowel syndrome) Venancio thyroiditis Dyslipidemia Seasonal allergies Essential hypertension Smoker unmotivated to quit Family History Medical History Relation Name Comments Diabetes mellitus Father Prostate cancer Father Schizophrenia Father Breast cancer Mother Colon cancer Neg Hx Relation Name Status Comments Father Mother Social History Tobacco Use Types Packs/Day Years Used Date Smoking Tobacco: Every Day Cigarettes Smokeless Tobacco: Current Tobacco Cessation:Ready to Q uit: Not Asked; Counseling Given: Not Answered Alcohol Use Standard Drinks/Week Comments Not Currently 0 (1 standard drink = 0.6 oz pur e alcohol) Comments Unknown Sex and Gender Information Value [...] 75 07/06/2024 8:24 AM EDT Temperature 36.7 C (98 F) 07/06/2024 8:24 AM EDT Respiratory Rate 18 07/06/2024 8:24 AM EDT Oxygen Saturation 98% 07/06/2024 8:24 AM EDT Inhaled Oxygen Concentration - - Weight 101 kg (222 lb) 08/13/2024 10:57 AM EDT Height 167.6 cm (5' 6 ) 08/13/2024 10:57 AM EDT Body Mass Index 35.83 08/13/2024 10:57 AM EDT Plan of Treatment Health Maintenance Due Date Last Done Comments Breast Cancer Screening 1968 Hepatitis B Vaccines (1 of 3 - 19+ 3-dose series) 07/19/1987 Pneumococcal Vaccine: 50+ Years (1 of 2 - PCV) 07/19/1987 Cervical Cancer Screening: P ap Smear 1989 Zoster Vaccines (1 of 2) 2018 Depression Screening 04/24/2024 Cholesterol Screening (Lipid Panel) 07/06/2024 HIV Screening 07/06/2024 Hepatitis C Screening 07/06/2024 Social Influencers of Health Screening 07/06/2024 Hypertension/CHF/CAD Annual BMP Blood Test 08/13/2024 COVID-19 Vaccine (3 - 2024-2 6 season) 2024 02/05/2021, 01/11/2021 Influenza Vaccine (#1) 2024 DTaP,Tdap,and Td Vaccines (2 - Td or Tdap) 08/03/2027 08/02/2017 Colorectal Cancer Screening: Colonoscopy 09/05/2034 09/05/2024 RSV Immunization Adult Patients (1 - 1-dose 75+ series) 07/19/2043 HIB Vaccines Aged Out No longer eligi [...] to complete this topic RSV Immunization Patients Under 20 months Aged Out No longer eligible b ased on patient's age to complete this topic Varicella Vaccines Aged Out No longer eligible based on patient's age to complete this topic Procedures Procedure Name Priority Date/Time Associated Diagnosis Comments EXTERNAL COLONOSCOPY REPORT Routine 09/05/2024 9:59 AM EDT from Last 3 Months or Most Recently Relevant to Health Maintenance Results * External Colonoscopy Report (09/05/2024 9:59 AM EDT) Anatomical Region Laterality Modality Endoscopy us Historical Provider GI~PROCEDURE ORDERABLES F inal Result from Last 3 Months or Most Recently Relevant to Health Maintenance Insurance [facility] Care Teams Concrete Form Setter And Finisher Relationship Specialty Start Date End Date Sirena Ford MD PCP - General Internal Medicine 07/16/24
== END 2025-01-16 10:13 | disposition home or self-care (01) ==
LOC: HO.HMCC 08:27
PROVIDERS: PCP Internal Medicine; Visit Provider Internal Medicine
DX: M54.50 Low back pain, unspecified (principal); S80.212S Abrasion, left knee, sequela

== ENCOUNTER → 2025-01-16 08:26 | Outpatient (BNVA) | payer OTHER, SELFPAY | PROVIDERS: PCP Internal Medicine; Visit Provider Internal Medicine | DX: M54.50 Low back pain, unspecified (principal); S80.212S Abrasion, left knee, sequela; Z13.39 Encounter for screening examination for other mental health and behavioral disorders; Z13.30 Encounter for screening examination for mental health and behavioral disorders, unspecified | CPT/HCPCS: 96127; 99212 ==

== ENCOUNTER 2025-02-28 13:20 | Outpatient (AMB) | payer OTHER, SELFPAY ==
[2025-02-28 13:37] VITALS: BP 122/76; PULSE 71; TEMP 36.3; O2SAT 97; BMI 35.5
--- NOTE | 2025-02-28 13:37 | MHC.OFFWIV ---
Intake Vital Signs 02/28/25 13:37 Height 5 ft 6 in Weight 220 lb BMI 35.5 BP 122/76 Blood Pressure Location Lt brachial Position Sitting Pulse 71 Pulse Source Pulse Oximeter Temp 97.4 F Temp Source Oral Pulse Oximetry (%) 97 Oxygen Delivery Method Room Air Intake Visit Reasons: EP-lower left back pain Intake Note: pt presents with LT lower back pain radiating to LT hip s/p a fall 01/13/25. notes Tizanidine was helpful in the past Patient Tobacco Use Status: Current everyday Tobacco user Allergies No Known Drug Allergies Allergy (Verified 02/28/25 13:45) unknown Environmental Allergy (Unknown, Uncoded 02/28/25 13:45) Unknown Medication List - Last Reconciled 02/28/25 by Ayan Lantigua MD bupropion HCl XL 300 mg PO QAM cetirizine 10 mg PO DAILY cholecalciferol (vitamin D3) 125 mcg PO DAILY gabapentin 300 mg PO TID hydrochlorothiazide 25 mg PO QAM levothyroxine 75 mcg PO DAILY magnesium oxide 500 mg PO .QHS valacyclovir 500 mg PO DAILY Do you need a note to return to daycare/school/sports/work: No HPI EP-lower left back pain HPI Details History of Present Illness The patient is a 54-year-old female presenting for management of back and knee pain and a medication refill request. Low back pain: - The patient reports a history of back issues starting in May involving two discs. - She experienced an acute exacerbation after a fall in December, which wrenched her lower back. - She describes the pain as debilitating on some days and sometimes throbbing, particularly at work. 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 - She wears a back brace at work which helps, and applies ice at night for relief. - The patient is currently attending physical therapy and has a follow-up appointment with her clinical exercise specialist on Monday. Knee pain: - The patient's knee pain began after a fall in December. - Following the fall, her knee became infected, but she reports it is now better. - She continues to have discomfort and difficulty bending the knee, particularly when walking downstairs. Medication management: - The patient is prescribed gabapentin three times a day but cannot take it as directed due to somnolence, which interferes with her work and driving. - For pain, she uses [id number] Aleve and Tylenol 650 mg, admitting to sometimes taking more than recommended. - She reports that a previously prescribed muscle relaxer, which she identifies as starting with a 'T' and different from Flexeril, was very helpful. - She is requesting a refill of this muscle relaxer. Problem List - Chronic low back pain with acute exacerbation - Left knee pain, post-traumatic - Degenerative disc disease, lumbar region - Medication management Plan - A prescription for Tizanidine was sent to the patient's pharmacy, [facility] on [address]. - Advised to continue taking gabapentin, with the option to take two pills at night for pain, but to avoid taking it in the morning due to its sedative effects. - Patient will continue physical therapy for her back. - Recommended the patient wait to obtain a new physical therapy referral until after her upcoming orthopedic appointment. - Patient to follow-up with her clinical exercise specialist at [facility] on Monday. - Patient has a scheduled follow-up appointment with her primary care provider, on the . Review of Systems - General: No fever no chills - Neurological: No headaches no dizziness - Ear nose throat: No sore throat no hearing difficulty no ear pain - Cardiovascular: No syncope, no chest pain, no palpitations - Gastrointestinal: No nausea vomiting or diarrhea Physical Exam General: No acute distress HEENT: No acute findings Neck: Supple Respiratory system: Able to talk in full sentences, no audible wheeze Extremities: Knee discomfort, favoring knee, difficulty walking downstairs PATIENT RELATIONS COORDINATOR: Alert awake oriented x3 motor intact Skin: Normal turgor [facility] Medical History Colon cancer screening Obesity (BMI 30-39.9) Vaccine refused by patient Acquired hypothyroidism Vitamin D deficiency Numbness and tingling of right lower extremity Spider veins of both lower extremities Breast cancer screening Smoker unmotivated to quit Dyslipidemia Venancio's thyroiditis Essential hypertension IBS (irritable bowel syndrome) Recurrent cold sores Depression with anxiety Seasonal allergies Menopause syndrome Surgical History History of carpal tunnel surgery Trigger thumb, right thumb History of flexible sigmoidoscopy Family History Father Schizophrenia Diabetes mellitus HTN (hypertension) Depression Bladder cancer Liver cancer Mental health disorder Mother Diabetes mellitus HTN (hypertension) Breast cancer Mental health disorder Maternal Grandmother Heart problem Maternal Grandfather Pneumonia Paternal Grandmother No problems noted. Paternal Grandfather No problems noted. Sister Substance use disorder Mental health disorder Sister Mental health disorder Social History Housing: Condominium Alcohol intake: current Patient Tobacco Use Status: Current everyday Tobacco user e-Cigarette/Vaping Use: Never Used service: No Current occupational status: employed Cognitive needs: No Hearing needs: No Vision needs: No Physical Exam Vital Signs: Last Vital Signs Temp 97.4 F 02/28/25 13:37 Pulse 71 02/28/25 13:37 BP 122/76 02/28/25 13:37 Pulse Ox 97 02/28/25 13:37 Oxygen Delivery Method Room Air 02/28/25 13:37 BMI result Body Mass Index 35.5 Assessment & Plan Assessment & Plan (1) Lower back pain: Code(s): M54.50 - Low back pain, unspecified Qualifiers: Chronicity: chronic Back pain laterality: left Sciatica presence: with sciatica Sciatica laterality: sciatica of left side Qualified Code(s): M54.42 - Lumbago with sciatica, left side; G89.29 - Other chronic pain Plan Low back pain: - The patient reports a history of back issues starting in May involving two discs. - She experienced an acute exacerbation after a fall in December, which wrenched her lower back. - She describes the pain as debilitating on some days and sometimes throbbing, particularly at work. 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 - She wears a back brace at work which helps, and applies ice at night for relief. - The patient is currently attending physical therapy and has a follow-up appointment with her clinical exercise specialist on Monday. Knee pain: - The patient's knee pain began after a fall in December. - Following the fall, her knee became infected, but she reports it is now better. - She continues to have discomfort and difficulty bending the knee, particularly when walking downstairs. Medication management: - The patient is prescribed gabapentin three times a day but cannot take it as directed due to somnolence, which interferes with her work and driving. - For pain, she uses [id number] Aleve and Tylenol 650 mg, admitting to sometimes taking more than recommended. - She reports that a previously prescribed muscle relaxer, which she identifies as starting with a 'T' and different from Flexeril, was very helpful. - She is requesting a refill of this muscle relaxer. Problem List - Chronic low back pain with acute exacerbation - Left knee pain, post-traumatic - Degenerative disc disease, lumbar region - Medication management Plan - A prescription for Tizanidine was sent to the patient's pharmacy, [facility] on [address] - Advised to continue taking gabapentin, with the option to take two pills at night for pain, but to avoid taking it in the morning due to its sedative effects. - Patient will continue physical therapy for her back. - Recommended the patient wait to obtain a new physical therapy referral until after her upcoming orthopedic appointment. - Patient to follow-up with her clinical exercise specialist at [facility] on Monday. - Patient has a scheduled follow-up appointment with her primary care provider, on the . Medications: Changed From magnesium oxide 500 mg PO BID 60 tabs 6RF K59.04 - Chronic idiopathic constipation, Z01.818 - Encounter for other preprocedural examination To magnesium oxide 500 mg PO .QHS K59.04 - Chronic idiopathic constipation, Z01.818 - Encounter for other preprocedural examination RADHA Crenshaw-C Refilled tizanidine 4 mg PO BID PRN 30 tabs 0RF muscle spasticity Ayan Lantigua MD Coding Level of Care Code Est Pt Level 3 (66698) Diagnoses Chronic left-sided low back pain with left-sided sciatica M54.42; G89.29 Chronicity: chronic Back pain laterality: left Sciatica presence: with sciatica Sciatica laterality: sciatica of left side
--- OUTSIDE RECORDS SUMMARY | 2025-02-28 15:27 | XMS_ITS | Clinical Summary ---
Author Organization [facility] Address [address] [place] [address] Phone Care Team Providers Care Revival Clerk Name Role Phone Sirena Ford MD Primary Care Provider [phone] Allergies No known active allergies Medications gabapentin (NEURONTIN) 100 mg capsule Take 1 capsule (100 mg total) by mouth 3 (three) times a day for 10 days. 30 capsule 07/07/19 25 Active buPROPion XL (WELLBUTRIN XL) 300 mg 24 hr tablet Take 1 tablet (300 mg total) by mouth 1 (one) time each day in the morning. 06/03/19 25 Active hydroCHLOROthiaz yelitza (HYDRODIURIL) 25 mg tablet Take 1 tablet (25 mg total) by mouth 1 (one) time each day in the morning. 05/21/19 25 Active levothyroxine (SYNTHROID, LEVOTHROID) 75 mcg tablet Take 1 tablet (75 mcg total) by mouth 1 (one) time each day. 05/21/19 25 Active magnesium oxide 500 mg magnesium tablet Take 1 tablet by mouth 2 (two) times a day. 11/07/19 24 Active valACYclovir (VALTREX) 500 mg tablet Take 1 tablet (500 mg total) by mouth 1 (one) time each day. 05/21/19 25 Active cholecalciferol, vitamin D3, 125 mcg (5,000 unit) tablet,disintegr ating Dissolve on top of the tongue. Active cetirizine (ZyrTEC) 10 mg tablet Take 1 tablet (10 mg total) by mouth 1 (one) time each day. Active bisacodyL (DULCOLAX) 5 mg EC tablet Take 2 tablets by mouth right before beginning bowel prep. See instructions provided by the office 2 tablet 08/23/19 25 Active polyethylene glycol (Golytely) 236-22.74-6.74 -5.86 gram solution Take 4L by mouth once for one dose. May substitue any PEG. Starting at 6PM the night before your procedure drink 1 8oz glasses at your own pace until you complete half of the gallon. Finish 2nd half of the gallon 5 hours before your procedure. 4000 mL 08/23/19 25 Active linaCLOtide (LINZESS) 290 mcg capsuleIndicatio ns:Chronic idiopathic constipation Take 1 capsule (290 mcg total) by mouth 1 (one) time each day. 30 each 5 08/23/19 25 025 Active Problems Problem Noted Date Diagnosed Date [...] Most Recently Relevant to Health Maintenance Insurance [facility] [place] [id number] Care Teams Revival Clerk Relationship Specialty Start Date End Date Sirena Ford MD PCP - General Internal Medicine 07/16/24
== END 2025-02-28 14:13 | disposition home or self-care (01) ==
PROVIDERS: PCP Internal Medicine; Visit Provider Internal Medicine
DX: M54.42 Lumbago with sciatica, left side (principal); G89.29 Other chronic pain

== ENCOUNTER → 2025-02-28 13:20 | Outpatient (BNVA) | payer OTHER, SELFPAY | PROVIDERS: PCP Internal Medicine; Visit Provider Internal Medicine | DX: M54.42 Lumbago with sciatica, left side (principal); K59.04 Chronic idiopathic constipation; M25.569 Pain in unspecified knee; G89.29 Other chronic pain | CPT/HCPCS: 99212 ==